=== PATIENT | male | born 1955 | race Caucasian/White ===

== ENCOUNTER 2023-05-27 09:44 | Emergency (ER) | payer MEDICARE, SELFPAY ==
--- NOTE | ~2023-05-27 | CT_ITS ---
EXAMINATION: CT ABDOMEN AND PELVIS WITH CONTRAST CLINICAL INFORMATION: Abdominal pain, nausea and vomiting. COMPARISON: None available. TECHNIQUE: Multidetector volumetric images were obtained from the superior aspect of the liver through the pubic symphysis following administration 85 mL of Omnipaque 350 intravenous contrast. Sagittal and coronal reformatted images were obtained on the technologist's workstation. Oral contrast: No This CT examination was performed using dose optimization techniques as appropriate, variously including the following: *Automated exposure control *Adjustment of mA and/or kV according to patient size (this includes techniques or standardized protocols for targeted exams where dose is matched to indication/reason for exam; i.e. extremities or head) *Use of iterative reconstruction technique DLP: 505 mGy-cm FINDINGS: [employer]: Nonobstructive bowel pattern. Degenerative changes, grade 1 anterolisthesis L4 on L5. LUNG BASES: 5 mm left lower lobe subpleural pulmonary nodule, 8:9. Left lower lobe atelectasis. LIVER, GALLBLADDER, AND BILIARY TREE: The liver is normal in size, shape, and attenuation. No focal hepatic lesion or biliary ductal dilatation is present. The gallbladder contains calcification near the neck. No wall thickening, pericholecystic fluid or inflammatory changes. PANCREAS: Unremarkable. SPLEEN: Unremarkable. ADRENAL GLANDS: Unremarkable. KIDNEYS AND URETERS: The kidneys are normal in size, shape, and attenuation. No hydronephrosis or hydroureter. 2 mm right lower pole nonobstructing calculus. Too small to characterize left renal hypodensities, likely cysts. No perinephric stranding. BLADDER: Urinary bladder distention with multiple diverticula. GASTROINTESTINAL TRACT: Well distended unremarkable stomach. Nonobstructive bowel pattern. Unremarkable terminal ileum and appendix. Diverticulosis with mild wall thickening descending colon. No pericolonic inflammatory changes. ABDOMINAL WALL: No significant hernia is appreciated. LYMPH NODES: Nonspecific inguinal lymph nodes bilaterally. Bilateral fat filled inguinal hernias. VASCULAR: Atherosclerotic calcifications nonaneurysmal aorta and tortuous iliac arteries. Normal caliber inferior vena cava. Patent portal system. PELVIC VISCERA: Prominent, heterogeneous prostate. OSSEOUS STRUCTURES: Multilevel degenerative changes and disc space narrowings. Grade 1 anterolisthesis L4 and L4 on L5. CT/CT abdomen pelvis w IV con IMPRESSION: Urinary bladder distention. Correlate regarding possible urinary retention. Prominent heterogeneous prostate. Nonobstructing right lower pole renal calculus. Cholelithiasis without other CT evidence of acute cholecystitis. 5 mm left lower lobe pulmonary nodule. Per Fleischner criteria, in low-risk patient, no routine follow-up. In unknown or high risk, optional CT at 12 months, is stable at 12 months no further follow-up.
[2023-05-27 09:56] VITALS: BP 102/64; PULSE 55; RESP 18; TEMP 36.7; O2SAT 95
[2023-05-27 10:13] VITALS: BP 123/59; PULSE 49; RESP 16; TEMP 37.2; O2SAT 100; BMI 24.1
--- NOTE | 2023-05-27 10:25 | ECG_ITS ---
Test Reason : STOMACHE PAIN Blood Pressure : / mmHG Vent. Rate : 052 BPM Atrial Rate : 052 BPM P-R Int : 162 ms QRS Dur : 076 ms QT Int : 452 ms P-R-T Axes : 049 029 047 degrees QTc Int : 420 ms Sinus bradycardia Otherwise normal ECG No previous ECGs available Referred By: Generic ED Physician Electronically Signed By:MARIXA MAN
[2023-05-27 10:48] LABS: MANUAL DIFF FLAG NO
[2023-05-27] MEDS: Metoclopramide HCl 10 MG/2 ML VIAL IVPUSH (10:48)
[2023-05-27 10:53] LABS: Basophils Absolute Auto 0.1 X10*3/uL (0.0-0.2); Basophils Percent Auto 0.8 % (0-2); Eosinophils Absolute Auto 0.1 X10*3/uL (0.0-0.4); Eosinophils Percent Auto 1.2 % (0-4); Hematocrit 39.3 % (42.0-52.0); Hemoglobin 13.4 g/dl (14.0-18.0); Imm Gran Abs Auto 0.03 X10*3/uL (0.00-0.03); Imm Gran Pct Auto 0.4 % (0.0-0.4); Lymphocytes Absolute Auto 0.8 X10*3/uL (1.2-4.9); Lymphocytes Percent Auto 10.8 % (20-40); Mean Corpuscular HGB Conc 34.1 g/dl (31.0-36.0); Mean Corpuscular Hemoglobin 31.4 pg (27.0-33.0); Mean Platelet Volume 9.2 fL (9.4-12.4); Monocytes Absolute Auto 0.3 X10*3/uL (0.1-1.2); Monocytes Percent Auto 4.4 % (2-11); Neutrophils Absolute Auto 6.4 x10*3/uL (2.0-8.3); Neutrophils Percent Auto 82.4 % (45-73); Platelet Count 136 X10*3/uL (160-400); Red Blood Count 4.27 X10*6/uL (4.60-5.80); Red Cell Distribution Width 12.6 % (11.0-16.0); White Blood Count 7.8 X10*3/uL (4.8-10.8)
[2023-05-27 11:05] LABS: Alanine Aminotransferase 17 U/L (0-40); Albumin Level 3.8 g/dL (3.5-5.0); Alkaline Phosphatase 66 U/L (39-117); Anion Gap 11 (12-20); Aspartate Amino Transferase 17 U/L (5-37); Bilirubin Direct 0.3 mg/dL (0.0-0.5); Bilirubin Total 0.8 mg/dL (0.0-1.0); Blood Urea Nitrogen 11 mg/dL (9-16); Calcium 8.8 mg/dL (8.4-10.2); Carbon Dioxide 24 mmol/L (22-29); Chloride 110 mmol/L (96-108); Creatinine Clr Calc Pharmacy 73.9; Estimated Glomerular Filt Rate > 60; Glucose Random 123 mg/dL (60-115); Lipase 20 U/L (8-78); Magnesium 1.8 mg/dL (1.6-2.6); Sodium 141 mmol/L (135-145); Total Protein 6.4 g/dL (6.5-8.0)
[2023-05-27 11:10] LABS: Lactic Acid 2.4 mmol/L (0.5-2.0)
[2023-05-27] MEDS: Morphine Sulfate 4 MG/ML CARTRIDGE IVPUSH (11:12)
[2023-05-27] MEDS: 0.9 % Sodium Chloride 1,000 ML 999 ML IV (11:20)
--- NOTE | 2023-05-27 11:38 | ED_ITS ---
HPI - Abdominal Pain General Chief Complaint: Abdominal Pain Stated Complaint: Left flank pain, shakiness, vomiting, nauseas Time Seen by Provider: 05/27/23 10:20 Source: patient, EMS, RN notes reviewed and old records reviewed Mode of arrival: EMS Limitations: no limitations History of Present Illness HPI narrative: 68 year old male w/ no significant pmhx presents to the ED via EMS from PCPs office w/complaints of left-sided abdominal pain that started this morning w/ assoc nausea and vomiting. 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 denies recent travel, sick contacts, trauma or injury, fever, chills, chest pain, shortness of breath, and urinary complaints. MD elicited complaint: abdominal pain Pertinent past history: none Onset (ago): hour(s) Pain Consistency: constant Related Data Allergies Allergy/AdvReac Type Severity Reaction Status Date / Time No Known Allergies Allergy Verified 05/27/23 10:12 Review of Systems Review of Systems Constitutional: No Fever, No Chills, No Fatigue, No Malaise ENT/Mouth: No Ear Pain, No Nasal Congestion, No sore throat, No Rhinorrhea, Cardiovascular: No Chest Pain, No SOB, No Edema, No Palpitations Respiratory: No Cough, No Sputum, No Wheezing, No Dyspnea Gastrointestinal: (+) Nausea, (+) Vomiting, (+) Abdominal pain, No Diarrhea, No Constipation, No Hematochezia, No Melena Genitourinary: No irregular bleeding, No Dysuria, No Urinary Frequency, No Hematuria, No Urinary Incontinence/retention, No Flank Pain Musculoskeletal: No joint pain, No Myalgias, No Joint Swelling Skin: No Skin Lesions, No rash Neuro: No Weakness, No Dizziness, No Headache Yes all other systems are reviewed and are negative Constitutional: Reports as per HPI [facility] Past Medical History Attestation statement: The following information was validated with the patient. Source: old records reviewed Medical History Hepatitis C Social History Social History Alcohol intake: former Smoked in Last 30 Days: No Use of substances other than those prescribed or required for medical reasons: No Advance Directives: No Advance Directives Information Provided: No Physical Exam ED Vital Signs: Vital Signs - 24 hr 05/27/23 09:56 05/27/23 10:13 05/27/23 11:54 Temperature 98.1 F 98.9 F Pulse Rate 55 49 L Respiratory Rate 18 16 18 Blood Pressure 102/64 123/59 L Pulse Oximetry 95 100 Oxygen Delivery Method Room Air Room Air 05/27/23 13:46 05/27/23 16:55 05/27/23 17:33 Temperature 98.6 F Pulse Rate 50 54 Respiratory Rate 16 18 Blood Pressure 111/57 L 126/64 Pulse Oximetry 95 96 Oxygen Delivery Method Room Air Room Air BMI result Body Mass Index 24.1 Const Other: In pain General: cooperative, no acute distress and alert Orientation/consciousness: patient oriented x3 Limitations: no limitations HENMT Head: Yes normal to inspection and Yes atraumatic Ears: hearing grossly normal bilaterally General nose exam: Normal external nose present Face and sinus: Yes normal facial exam Eyes General: appearance normal, both eyes and all related structures Pupils: Equal, round and reactive pupils present EOM: EOMs intact bilaterally Neck Neck: Yes normal visual inspection and Yes no meningeal signs Resp Effort & Inspection: normal respiratory effort and no respiratory distress Auscultation: clear to auscultation bilaterally Cardio Rate: regular rate Heart sounds: S1 normal heart sound present and S2 normal heart sound present GI Inspection: Yes normal to inspection Palpation (GI): Soft to palpation, Tenderness to palpation present (GI) in the LLQ, in the LUQ and in the RUQ; with no rebound tenderness, Guarding due to palpation present (GI), not rigid and No Rebound tenderness present General: Yes no CVA tenderness Back/Spine/Pelvis Back: no CVA tenderness Skin Rashes: no rashes Wounds: no wounds Neuro General: patient oriented x3, tone normal and no meningeal signs Cranial nerves: Yes CN's II-XII intact bilaterally and Yes Equal, round and reactive pupils present Extrem General: Yes normal to inspection Course Course Course Narrative: -1225-- no leukocytosis. Lactic acidosis of 2.4 > will give IVF and empiric Zosyn, still low suspicion for severe sepsis at this time - troponin negative - repeat lactic acid normalized 1456--CT abdomen pelvis w IV con IMPRESSION: Urinary bladder distention. Correlate regarding possible urinary retention. Prominent heterogeneous prostate. Nonobstructing right lower pole renal calculus. Cholelithiasis without other CT evidence of acute cholecystitis. 5 mm left lower lobe pulmonary nodule. Per Fleischner criteria, in low-risk patient, no routine follow-up. In unknown or high risk, optional CT at 12 months, is stable at 12 months no further follow-up. >> patient has not yet provided urine in the ED, states he does not have the urge to go, will perform bladder scan with postvoid residual - pre void bladder scan 696 > post-void residual with 350 - patient given water, additional bladder scan 619 > patient only with 100 cc output > postvoid residual 468 >> patient retaining, will place Moctezuma catheter -1630-- ED care transferred to [facility] pending catheter placement, UA, and dispo home with leg bag Reevaluation(s) Reevaluation #1: Urinalysis is without evidence of infection. Moctezuma catheter was placed without complication, instructed on use of leg bag and outpatient follow-up with Urology. All questions answered. Stable for discharge. Time: 17:34 Medical Decision Making Medical Decision Making [facility] Narrative: 68 year old male w/ no significant pmhx presents to the ED via EMS from PCPs office w/complaints of left-sided abdominal pain that started this morning w/ assoc nausea and vomiting. 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 On exam VSS, NAD, appears in pain, abdomen soft diffusely tender with guarding, no rebound, no CVAT. concern for diverticulitis/colitis vs ? splenic pathology vs hepatobilliary disease/cholecystitis/lithiasis or acute pancreatitis/PUD. Lower suspicion for appendicitis, bowel obstruction/perforation. lower suspicion for ACS low suspicion for severe sepsis at this time Plan: EKG,labs, UA, CT abd/pelv w/ IV contrast, pain control, re-evaluate Please refer to course for remaining clinical decision making, interpretation of labs/imaging results, and discussions with consultants and/or family members. Differential Diagnosis Differential Diagnoses: The differential diagnosis associated with the presentation includes As above Admission/Observation Consideration of admission/observation: Escalation of care including admission/observation considered Lab Data [facility] Lab Attestation statement: I reviewed the patient's lab results. 05/27/23 10:40 05/27/23 10:40 Labs: Lab Results 05/27/23 05/27/23 05/27/23 Range/Units 10:40 10:40 10:40 WBC 7.8 (4.8-10.8) X10*3/uL RBC 4.27 L (4.60-5.80) X10*6/uL Hgb 13.4 L (14.0-18.0) g/dl Hct 39.3 L (42.0-52.0) % MCV 92.0 (80.0-98.0) fL MCH 31.4 (27.0-33.0) pg MCHC 34.1 (31.0-36.0) g/dl RDW 12.6 (11.0-16.0) % Plt Count 136 L (160-400) X10*3/uL MPV 9.2 L (9.4-12.4) fL Immature Gran % (Auto) 0.4 (0.0-0.4) % Neut % (Auto) 82.4 H (45-73) % Lymph % (Auto) 10.8 L (20-40) % Major % (Auto) 4.4 (2-11) % Eos % (Auto) 1.2 (0-4) % Baso % (Auto) 0.8 (0-2) % Lymph # (Auto) 0.8 L (1.2-4.9) X10*3/uL Major # (Auto) 0.3 (0.1-1.2) X10*3/uL Eos # (Auto) 0.1 (0.0-0.4) X10*3/uL Baso # (Auto) 0.1 (0.0-0.2) X10*3/uL Abs Immat Gran (auto) 0.03 (0.00-0.03) X10*3/uL Absolute Neuts (auto) 6.4 (2.0-8.3) x10*3/uL Absolute Nucleated RBC 0.000 (0.0-0.012) X10*3/uL Nucleated RBC % (auto) 0.0 (0.0-0.2) /100WBC Sodium 141 (135-145) mmol/L Potassium 4.0 (3.3-5.1) mmol/L Chloride 110 H (96-108) mmol/L Carbon Dioxide 24 (22-29) mmol/L Anion Gap 11 L (12-20) BUN 11 (9-16) mg/dL Creatinine 0.99 (0.5-1.4) mg/dL Estim Creat Clear Calc 73.9 Estimated GFR > 60 Random Glucose 123 H (60-115) mg/dL Lactic Acid 2.4 H* (0.5-2.0) mmol/L Lactic Acid F/U @ 2Hr (0.5-2.0) mmol/L Calcium 8.8 (8.4-10.2) mg/dL Magnesium 1.8 (1.6-2.6) mg/dL Total Bilirubin 0.8 (0.0-1.0) mg/dL Direct Bilirubin 0.3 (0.0-0.5) mg/dL AST 17 (5-37) U/L ALT 17 (0-40) U/L Alkaline Phosphatase 66 (39-117) U/L Troponin I High Sens (<3.5-35.0) ng/L Total Protein 6.4 L (6.5-8.0) g/dL Albumin 3.8 (3.5-5.0) g/dL Lipase 20 (8-78) U/L Urine Color Urine Appearance Urine pH (5.0-9.0) Ur Specific [place] (1.005-1.025) Urine Protein (Neg-Trace) mg/dL Urine Glucose (UA) (Negative) mg/dL Urine Ketones (Negative) mg/dL Urine Blood (Negative) Urine Nitrite (Negative) Ur Leukocyte Esterase (Negative) 05/27/23 05/27/23 05/27/23 Range/Units 11:19 12:58 16:30 WBC (4.8-10.8) X10*3/uL RBC (4.60-5.80) X10*6/uL Hgb (14.0-18.0) g/dl Hct (42.0-52.0) % MCV (80.0-98.0) fL MCH (27.0-33.0) pg MCHC (31.0-36.0) g/dl RDW (11.0-16.0) % Plt Count (160-400) X10*3/uL MPV (9.4-12.4) fL Immature Gran % (Auto) (0.0-0.4) % Neut % (Auto) (45-73) % Lymph % (Auto) (20-40) % Major % (Auto) (2-11) % Eos % (Auto) (0-4) % Baso % (Auto) (0-2) % Lymph # (Auto) (1.2-4.9) X10*3/uL Major # (Auto) (0.1-1.2) X10*3/uL Eos # (Auto) (0.0-0.4) X10*3/uL Baso # (Auto) (0.0-0.2) X10*3/uL Abs Immat Gran (auto) (0.00-0.03) X10*3/uL Absolute Neuts (auto) (2.0-8.3) x10*3/uL Absolute Nucleated RBC (0.0-0.012) X10*3/uL Nucleated RBC % (auto) (0.0-0.2) /100WBC Sodium (135-145) mmol/L Potassium (3.3-5.1) mmol/L Chloride (96-108) mmol/L Carbon Dioxide (22-29) mmol/L Anion Gap (12-20) BUN (9-16) mg/dL Creatinine (0.5-1.4) mg/dL Estim Creat Clear Calc Estimated GFR Random Glucose (60-115) mg/dL Lactic Acid (0.5-2.0) mmol/L Lactic Acid F/U @ 2Hr 1.1 (0.5-2.0) mmol/L Calcium (8.4-10.2) mg/dL Magnesium (1.6-2.6) mg/dL Total Bilirubin (0.0-1.0) mg/dL Direct Bilirubin (0.0-0.5) mg/dL AST (5-37) U/L ALT (0-40) U/L Alkaline Phosphatase (39-117) U/L Troponin I High Sens 4.3 (<3.5-35.0) ng/L Total Protein (6.5-8.0) g/dL Albumin (3.5-5.0) g/dL Lipase (8-78) U/L Urine Color Yellow Urine Appearance Clear Urine pH 7.0 (5.0-9.0) Ur Specific [place] >= 1.030 H (1.005-1.025) Urine Protein Negative (Neg-Trace) mg/dL Urine Glucose (UA) Negative (Negative) mg/dL Urine Ketones Trace (Negative) mg/dL Urine Blood Negative (Negative) Urine Nitrite Negative (Negative) Ur Leukocyte Esterase Negative (Negative) Independent Interpretation I performed an independent interpretation of an: EKG ( my interpretation EKG sinus bradycardia rate of 52. ID interval 162. QTC 420. No STEMI. No priors to compare) Radiology Impression Discussion of test interpretation with radiology: I have reviewed the radiologist's reading. Independent Historian Clinical information obtained from an independent historian. History obtained from or confirmed by: EMS External Record Review External record reviewed: Inpatient record, Office record, Outpatient record, Prior outpatient labs, Prior outpatient radiology, Primary care record and Outside ED record Tests considered The following testing was considered but not selected: As above Prescription Management I considered prescription management with: Pain Medication and Antibiotic Medications Administered Discontinued Medications Generic Name Dose Route Start Last Admin Trade Name Freq PRN Reason Stop Dose Admin Sodium Chloride 1,000 mls @ 999 mls/hr 05/27/23 11:15 05/27/23 13:07 Ns IV 05/27/23 12:15 Infused .Q1H1M ZECHARIAH Infusion Piperacillin Sod/Tazobactam 50 mls @ 100 mls/hr 05/27/23 11:10 05/27/23 13:07 Sod 3.375 gm/ Sodium Chloride IV 05/27/23 11:39 Infused ONCE ONE Infusion Sodium Chloride 500 mls @ 999 mls/hr 05/27/23 12:30 05/27/23 14:29 Ns IV 05/27/23 13:00 Infused .Q31M ZECHARIAH Infusion Iohexol 85 ml 05/27/23 13:28 05/27/23 13:28 Iohexol 350 Mg/Ml 100 Ml Infus..Btl IV 05/27/23 13:29 85 ml ONCE ONE Administration Ketorolac Tromethamine 15 mg 05/27/23 16:33 05/27/23 16:52 Ketorolac Tromethamine 15 Mg/Ml Vial IVPUSH 05/27/23 16:34 15 mg ONCE ONE Administration Metoclopramide HCl 10 mg 05/27/23 10:34 05/27/23 10:48 Metoclopramide Hcl 10 Mg/2 Ml Vial IVPUSH 05/27/23 10:35 10 mg ONCE ONE Administration Morphine Sulfate 4 mg 05/27/23 10:46 05/27/23 11:12 Morphine Sulfate 4 Mg/Ml Cartridge IVPUSH 05/27/23 10:47 4 mg ONCE ONE Administration Protocol Tamsulosin HCl 0.4 mg 05/27/23 16:34 05/27/23 16:52 Tamsulosin Hcl 0.4 Mg Capsule PO 05/27/23 16:35 0.4 mg ONCE ONE Administration Discharge Plan Discharge Clinical Impression: Acute urinary retention, Incidental pulmonary nodule Patient Disposition: Home, Self-Care Instructions: Urinary Retention in Men (ED) Additional Instructions: your CT scan showed urine urinary retention, we needed to place a Moctezuma catheter you need to follow-up with Urology in 1 week for catheter removal Your CT scan also showed a left lobe pulmonary nodule it is recommended you have a repeat CT scan in 1 year, please follow-up with her primary care doctor Your blood work is reassuring Referrals: [facility] [place] [facility] Services [Provider Group] - 1 week Physician,Patience J [Primary Care Provider] -
[2023-05-27] MEDS: Piperacillin Sodium/Tazobactam 3.375 GM in 0.9 % Sodium Chloride 50 ML IV (11:46)
[2023-05-27 11:54] VITALS: RESP 18
[2023-05-27 11:54] LABS: Troponin-I High Sensitivity 4.3 ng/L (<3.5-35.0)
[2023-05-27 12:46] LABS: Reflex Lactate? Lactic Acid Added
[2023-05-27 13:23] LABS: ~Lactic Acid-LAB USE ONLY 1.1 mmol/L (0.5-2.0)
[2023-05-27] MEDS: iohexoL 350 MG/ML 100 ML INFUS..BTL 85 ML IV (13:28)
[2023-05-27] MEDS: 0.9 % Sodium Chloride 500 ML 999 ML IV (13:43)
[2023-05-27 13:46] VITALS: BP 111/57; PULSE 50; RESP 16; O2SAT 95
[2023-05-27 16:47] LABS: Appearance Urine Clear; Color Urine Yellow; Glucose Urine UA Negative (Negative); Leukocyte Esterase Urine Negative (Negative); Nitrite Urine Negative (Negative); Specific Gravity - Urine >= 1.030 (1.005-1.025); Urine Blood Negative (Negative); Urine Ketones Trace mg/dL (Negative); Urine Protein Negative (Neg-Trace)
[2023-05-27] MEDS: Tamsulosin HCL 0.4 MG CAPSULE PO (16:52)
[2023-05-27] MEDS: Ketorolac Tromethamine 15 MG/ML VIAL IVPUSH (16:52)
[2023-05-27 16:55] VITALS: BP 126/64; PULSE 54; TEMP 37; O2SAT 96
[2023-05-27 17:33] VITALS: RESP 18
--- NOTE | 2023-05-27 17:34 | PC.NURSE ---
haas placed. clear yellow urine drained.
--- NOTE | 2023-05-27 17:54 | PC.NURSE ---
800 cc urine out s/p urine catheter. leg bag applied- patent, cdi. piv out
== END 2023-05-27 17:58 | disposition home or self-care (01) ==
PROVIDERS: Physician Assistant; Emergency Provider Emergency Medicine
DX: R33.9 Retention of urine, unspecified (principal); B19.20 Unspecified viral hepatitis C without hepatic coma
CPT/HCPCS: 36415; 51798; 74177; 80053; 81003; 82248; 83605; 83690; 83735; 84484; 85025; 93005; 96361; 96374; 96375; 99284; 99285; J1885; J2270; J2543; J2765; Q9967

== ENCOUNTER 2023-06-05 10:11 | Outpatient (AMB) | payer MEDICARE, SELFPAY ==
--- NOTE | 2023-06-05 05:57 | A.OFFVIS_ITS ---
Intake Intake Visit Reasons: voiding trial Intake Note: Patient presents today for a ER follow-up on Acute Urinary Retention, Voiding trial: Meds- None Allergies to Antibiotic- No Known Allergies Blood Thinner- None Board Design Engineer Required: No Accompanied by: Self / Same As Patient Allergies No Known Allergies Allergy (Verified 05/27/23 10:12) HPI HPI Comments History of Present Illness Details Samy is a 68-year-old male who presents today to the office for a follow up voiding trial. 06/05/2023? Samy is followed today due to urinary retention, haas was placed in the ED. He was seen in ED on 05/27/2023 with complaints of left-sided abdominal pain that started with associated nausea and vomiting. Imaging - CT of the abdomen/pelvis results from 05/27/2023 revealed Urinary bladder distention. Correlate regarding possible urinary retention. Prominent heterogeneous prostate. Nonobstructing right lower pole renal calculus. Exam - prostate moderately enlarged, irregular Haas was removed today in the office. Pt returned later in day and Bladder scan PVR was 22 mL PSA screening was ordered.? Flomax 0.4 mg daily was ordered. [facility] Medical History Hepatitis C Family History Father No problems noted. Mother No problems noted. Social History Alcohol intake: former Review of Systems Const All systems reviewed & are unremarkable except as noted in HPI and below Reports no additional complaints Eyes Reports no additional complaints ENT Reports no additional complaints Card Denies dyspnea Resp Denies cough and Denies dyspnea GI Reports no additional complaints Musc Reports no additional complaints Skin/Breast Denies rash and Denies unusual bruising Neuro Reports no additional complaints Psych Reports no additional complaints Endo Reports no additional complaints Jc/Lymph Reports no additional complaints Aller/Immun Reports no additional complaints Physical Exam Const General: healthy appearing, no acute distress and well developed Orientation/consciousness: patient oriented x3 HEENT Head: Yes normocephalic and Yes atraumatic Eyes Conjunctivae: conjunctivae normal Neck Neck: Yes normal visual inspection Chest Chest palpation & inspection: normal inspection of the chest Resp Effort & Inspection: normal respiratory effort Cardio Rate: regular rate GI Inspection: Yes normal to inspection Palpation (GI): Soft to palpation Other: Prostate Exam: enlarged irregular Penis: normal penis and circumcised Scrotum: scrotum normal Skin General skin exam: no rashes or lesions noted Neuro General: patient oriented x3 Extrem General: No pedal edema Psych Appearance: grossly normal Affect: normal affect Office Procedures Post Void Residual Post Residual Void Details: pt presents back to office for PVR- pt emptied bladder in br, bladder scanned for 22 mls. Post Void Residual (PVR): [id number] Void Residual by ultrasound Results Reviewed Results Reviewed: Date of Service: 05/27/23 EXAMINATION: CT ABDOMEN AND PELVIS WITH CONTRAST? CLINICAL INFORMATION: Abdominal pain, nausea and vomiting.? COMPARISON: None available. FINDINGS: [employer]: Nonobstructive bowel pattern. Degenerative changes, grade 1 anterolisthesis L4 on L5. LUNG BASES: 5 mm left lower lobe subpleural pulmonary nodule, 8:9. Left lower lobe atelectasis. LIVER, GALLBLADDER, AND BILIARY TREE: The liver is normal in size, shape, and attenuation. No focal hepatic lesion or biliary ductal dilatation is present. The gallbladder contains calcification near the neck. No wall thickening, pericholecystic fluid or inflammatory changes.? PANCREAS: Unremarkable.? SPLEEN: Unremarkable.? ADRENAL GLANDS: Unremarkable.? KIDNEYS AND URETERS: The kidneys are normal in size, shape, and attenuation. No hydronephrosis or hydroureter. 2 mm right lower pole nonobstructing calculus. Too small to characterize left renal hypodensities, likely cysts. No perinephric stranding.?? BLADDER: Urinary bladder distention with multiple diverticula. GASTROINTESTINAL TRACT: Well distended unremarkable stomach. Nonobstructive bowel pattern. Unremarkable terminal ileum and appendix. Diverticulosis with mild wall thickening descending colon. No pericolonic inflammatory changes. ABDOMINAL WALL: No significant hernia is appreciated.? LYMPH NODES: Nonspecific inguinal lymph nodes bilaterally. Bilateral fat filled inguinal hernias. VASCULAR: Atherosclerotic calcifications nonaneurysmal aorta and tortuous iliac arteries. Normal caliber inferior vena cava. Patent portal system. PELVIC VISCERA: Prominent, heterogeneous prostate. OSSEOUS STRUCTURES: Multilevel degenerative changes and disc space narrowings. Grade 1 anterolisthesis L4 and L4 on L5. IMPRESSION: Urinary bladder distention. Correlate regarding possible urinary retention. Prominent heterogeneous prostate. Nonobstructing right lower pole renal calculus. Cholelithiasis without other CT evidence of acute cholecystitis. 5 mm left lower lobe pulmonary nodule. Per Fleischner criteria, in low-risk patient, no routine follow-up. In unknown or high risk, optional CT at 12 months, is stable at 12 months no further follow-up. Assessment & Plan Assessment & Plan (1) Urinary retention: Code(s): R33.9 - Retention of urine, unspecified (2) BPH loc w urin obs/LUTS: Code(s): N40.1 - Benign prostatic hyperplasia with lower urinary tract symptoms (3) Right kidney stone: Code(s): N20.0 - Calculus of kidney Plan Haas was removed today in the office. PSA screening was ordered.? Flomax 0.4 mg daily was ordered. Orders: Orders PSA,Total (Free>4and<10) 1 Month N40.1 - Benign prostatic hyperplasia with lower urinary tract symptoms AMB Post Void Residual by ultrasound 06/05/23 N20.0 - Calculus of kidney, R33.9 - Retention of urine, unspecified, N40.1 - Benign prostatic hyperplasia with lower urinary tract symptoms Medications: New tamsulosin (Flomax) 0.4 mg PO BEDTIME 90 caps 0RF Patient Instructions: The patient had an opportunity to ask questions regarding treatment plan. All questions were answered. Imaging, Laboratory studies and physical exam results were discussed and reviewed in detail. No major barriers to understanding were identified. The patient expressed understanding and agreement with the above treatment plan.? ? ? The patient is aware they should contact our office by phone for worsening of their current condition or the appearance of new symptoms. Compliance is encouraged with any medications and followup testing that is ordered.? ? ? It is a privilege to be allowed the opportunity to participate in the urologic care of your patient. If you have any questions or concerns regarding treatment for the above conditions please do not hesitate to contact me. The office telephone contact is [phone].? ? ? This note is constructed in part using voice recognition software. While every effort has been made to ensure accuracy state assessed properties director errors may have been included.? ? ? Yours sincerely,? ? ? Alfredo Hernandes MD? ? Coding Level of Care Code New Pt Level 4 (30575) Diagnoses Urinary retention R33.9 BPH loc w urin obs/LUTS N40.1 Right kidney stone N20.0 CPT Codes Post Residual Void - PVR CPT Code: 11819-Lvfj Void Residual by ultrasound ([id number])
== END 2023-06-05 11:20 | disposition home or self-care (01) ==
PROVIDERS: Visit Provider Urology
DX: R33.9 Retention of urine, unspecified (principal); N40.1 Benign prostatic hyperplasia with lower urinary tract symptoms; N20.0 Calculus of kidney
CPT/HCPCS: 99204

== ENCOUNTER → 2023-06-05 10:11 | Outpatient (BNVA) | payer MEDICARE, SELFPAY | PROVIDERS: Visit Provider Urology | DX: N40.1 Benign prostatic hyperplasia with lower urinary tract symptoms (principal); N13.8 Other obstructive and reflux uropathy; R33.8 Other retention of urine; N20.0 Calculus of kidney | CPT/HCPCS: 51798; 99202 ==

== ENCOUNTER → 2023-07-28 14:21 | Outpatient (BNVA) | payer MEDICARE, SELFPAY | PROVIDERS: Visit Provider Urology ==

== ENCOUNTER 2023-08-04 08:13 | Outpatient (AMB) | payer MEDICARE, SELFPAY ==
--- NOTE | 2023-08-04 08:14 | A.OFFVIS_ITS ---
Intake Intake Visit Reasons: 6w/labs Intake Note: Patient presents today for Labs Results: Meds- Tamsulosin Allergies to Antibiotic- No Known Allergies Blood Thinner- None Electric Power Superintendent Required: No Accompanied by: Self / Same As Patient Allergies No Known Allergies Allergy (Verified 05/27/23 10:12) Medication List - Last Reconciled 08/04/23 by Alfredo Hernandes MD amlodipine 5 mg PO DAILY atorvastatin 10 mg PO DAILY ferrous sulfate 325 mg PO DAILY folic acid 1 mg PO DAILY lisinopril 30 mg PO DAILY tamsulosin (Flomax) 0.4 mg PO BEDTIME HPI HPI Comments History of Present Illness Details Samy is a 68-year-old male who presents today via Tele-health visit for a follow-up. He is followed today for lab results. He was last seen by me on 06/05/2023 for voiding trial. PSA screening was ordered, and Flomax 0.4 mg daily was ordered during that time.? Moctezuma catheter was removed during that time. I reviewed the PSA results from 07/23/23 revealed 2.1 ng/mL. In discussion with the patient today, he states that he has been compliant with Flomax every evening. He states that he has good urinary flow. He has not had any issues with hesitancy and denies any irritative voiding symptoms. Review of chart: 06/05/23- Imaging - CT of the abdomen/pel vis results from 05/27/2023 revealed Urinary bladder distention. Correlate regarding possible urinary retention. Prominent heterogeneous prostate. Nonobstructing right lower pole renal ca lculus. Exam - prostate moderately enlarged, irregular 08/04/23: Plan Follow-up in 9 months in office to check bladder scan PVR KUB Xray- small right kidney stone. [facility] Medical History Hepatitis C Family History Father No problems noted. Mother No problems noted. Social History Alcohol intake: former Review of Systems Const All systems reviewed & are unremarkable except as noted in HPI and below Reports no additional complaints Eyes Reports no additional complaints ENT Reports no additional complaints Card Denies dyspnea Resp Denies cough and Denies dyspnea GI Reports no additional complaints Musc Reports no additional complaints Skin/Breast Denies rash and Denies unusual bruising Neuro Reports no additional complaints Psych Reports no additional complaints Endo Reports no additional complaints Cj/Lymph Reports no additional complaints Aller/Immun Reports no additional complaints Assessment & Plan Assessment & Plan (1) BPH loc w urin obs/LUTS: Code(s): N40.1 - Benign prostatic hyperplasia with lower urinary tract symptoms (2) Right kidney stone: Code(s): N20.0 - Calculus of kidney Plan Follow-up in 9 months in office to check bladder scan PVR KUB Xray- small right kidney stone. Orders: Orders XR KUB 8 Months N20.0 - Calculus of kidney Medications: Refilled tamsulosin (Flomax) 0.4 mg PO BEDTIME 90 caps 3RF Patient Instructions: The patient had an opportunity to ask questions regarding treatment plan. All questions were answered. Imaging, Laboratory studies and physical exam results were discussed and reviewed in detail. No major barriers to understanding were identified. The patient expressed understanding and agreement with the above treatment plan.? ? ? The patient is aware they should contact our office by phone for worsening of their current condition or the appearance of new symptoms. Compliance is encouraged with any medications and followup testing that is ordered.? ? ? It is a privilege to be allowed the opportunity to participate in the urologic care of your patient. If you have any questions or concerns regarding treatment for the above conditions please do not hesitate to contact me. The office telephone contact is [phone].? ? ? This note is constructed in part using voice recognition software. While every effort has been made to ensure accuracy vocational nurse lvn errors may have been included.? ? ? Yours sincerely,? ? ? Alfredo Hernandes MD? Telehealth Telehealth Location of provider rendering services: practice address Location of patient: address on file Patient Identification confirmed using: Name, : Yes Telehealth method: voice only Patient verbally consented to treatment: Yes Patient verbally consented to billing insurance company: Yes Patient informed of any privacy concerns related to visit: Yes Minutes spent on Phone/Video with Pt.: 15 Coding Level of Care Code Tele Est Pt Level 3 (76761) Diagnoses BPH loc w urin obs/LUTS N40.1 Right kidney stone N20.0
== END 2023-08-04 08:32 | disposition home or self-care (01) ==
LOC: HO.HUSH 08:13
PROVIDERS: Visit Provider Urology
DX: N40.1 Benign prostatic hyperplasia with lower urinary tract symptoms (principal); N20.0 Calculus of kidney
CPT/HCPCS: 99442

== ENCOUNTER → 2023-08-04 08:13 | Outpatient (BNVA) | payer MEDICARE, SELFPAY | PROVIDERS: Visit Provider Urology ==

== ENCOUNTER 2024-07-08 08:29 | Outpatient (REF) | payer MEDICARE, SELFPAY ==
--- NOTE | ~2024-07-08 | XR_ITS ---
EXAMINATION: XR ABDOMEN KUB CLINICAL INDICATION: N20.0 - Calculus of kidney COMPARISON: Correlation made with CT abdomen and pelvis 05/27/2023. TECHNIQUE: AP view of the abdomen. FINDINGS: 3 mm calcification is present overlying the inferior pole of the right renal shadow. No additional calculi seen. There are vascular calcifications. Bowel gas pattern is normal/nonspecific. No organomegaly or large abdominal mass. Lung bases clear. Advanced spondylosis and levoconvex scoliosis of the lumbar spine. Partial fusion of the superior SI joints. Normal hip joints. XR/XR KUB IMPRESSION: 1. 3 mm calcification overlying the inferior right renal pole. 2. Additional findings as discussed. 3. Otherwise unremarkable exam. Electronically signed by: Angel Lawrence MD 09/14/2024 11:39 AM KASSANDRA
== END 2024-07-08 08:30 | disposition home or self-care (01) ==
LOC: HO.XRAY 08:29
PROVIDERS: PCP Internal Medicine; Visit Provider Urology
DX: N20.0 Calculus of kidney (principal)
CPT/HCPCS: 74018

== ENCOUNTER → 2024-07-08 08:35 | Outpatient (BNV) | payer MEDICARE, SELFPAY | PROVIDERS: PCP Internal Medicine; Visit Provider Radiology Diagnostic Radiology | DX: N20.0 Calculus of kidney (principal) | CPT/HCPCS: 74018 ==

== ENCOUNTER 2024-07-22 08:11 | Outpatient (AMB) | payer MEDICARE, SELFPAY ==
--- NOTE | 2024-07-22 08:29 | MHC.OFFVIS ---
Intake Visit Reasons: KUB f/u Intake Note: Patient is present for KUB F/U Urology Medication:TAMSULOSIN Antibiotic Allergy:NONE Blood Thinner:NONE TODAY'S PVR: 0ML'S Industrial Property Appraiser Required: No Allergies No Known Allergies Allergy (Verified 07/22/24 08:30) HPI Comments Details: 07/22/24--Samy is a 69-year-old male who presents today for a follow-up. Followed for BPH symptoms and renal calculi. On flomax. Denies irritative voiding symptoms. Reviewed PSA 07/22/24-2.40ng/mL. UA - microscopic hematuria. Will send urine for cytology. Review of chart: 08/04/23--He is followed today for lab results. He was last seen by me on 06/05/2023 for voiding trial. PSA screening was ordered, and Flomax 0.4 mg daily was ordered during that time.? Moctezuma catheter was removed during that time. I reviewed the PSA results from 07/23/23 revealed 2.1 ng/mL. In discussion with the patient today, he states that he has been compliant with Flomax every evening. He states that he has good urinary flow. He has not had any issues with hesitancy and denies any irritative voiding symptoms. Exam - prostate moderately enlarged, irregular Testin06/05/23- Imaging - CT of the abdomen/pelvis results from 05/27/2023 revealed Urinary bladder distention. Correlate regarding possible urinary retention. Prominent heterogeneous prostate. Nonobstructing right lower pole renal calculus. [facility] Medical History Hepatitis C Family History Father No problems noted. Mother No problems noted. Social History Alcohol intake: former Review of Systems Const All systems reviewed & are unremarkable except as noted in HPI and below Reports no additional complaints Eyes Reports no additional complaints ENT Reports no additional complaints Card Reports no additional complaints Resp Reports no additional complaints GI Reports no additional complaints Reports as per HPI Musc Reports no additional complaints Skin/Breast Reports system reviewed and no additional complaints, except as documented Neuro Reports no additional complaints Psych Reports no additional complaints Endo Reports no additional complaints Cj/Lymph Reports no additional complaints Aller/Immun Reports no additional complaints Office Procedures Post Void Residual Post Residual Void Post Void Residual (PVR): 0 [id number] Void Residual by ultrasound Results AMB Urinalysis, Automated UA Leukoctes 0 Cem/uL Last Edit by BERHANE Miranda on 07/22/24 08:40 UA Nitrite Negative Last Edit by BERHANE Miranda on 07/22/24 08:40 UA Urobilinogen 0.2 mg/dL Last Edit by Soo Ruelas [facility] on 07/22/24 08:40 UA Protein 0 mg/dL Last Edit by Soo Ruelas [facility] on 07/22/24 08:40 UA pH 6.0 Last Edit by Soo Ruelas [facility] on 07/22/24 08:40 UA Blood 10 Mg/uL Last Edit by Soo Ruelas [facility] on 07/22/24 08:40 UA Specific [place] 1.015 Last Edit by BERHANE Miranda on 07/22/24 08:40 UA Ketone Negative Last Edit by Soo Ruelas [facility] on 07/22/24 08:40 UA Bilirubin 0 mg/dL Last Edit by Soo Ruelas [facility] on 07/22/24 08:40 UA Glucose 0 mg/dL Last Edit by Soo Ruelas [facility] on 07/22/24 08:40 Results Reviewed Results Reviewed: Laboratory Last Values Urine pH (Auto) 6.0 07/22/24 08:39 Specific [place] (Auto) 1.015 07/22/24 08:39 Urine Protein (Auto) 0 mg/dL 07/22/24 08:39 Glucose (UA)(Auto) 0 mg/dL 07/22/24 08:39 Urine Ketones (Auto) Negative 07/22/24 08:39 Urine Blood (Auto) 10 Mg/uL 07/22/24 08:39 Urine Nitrite (Auto) Negative 07/22/24 08:39 Urine Bilirubin (Auto) 0 mg/dL 07/22/24 08:39 Urine Urobilinogen (Auto) 0.2 mg/dL 07/22/24 08:39 Leukocyte Esterase (Auto) 0 Cem/uL 07/22/24 08:39 Date of Service: 05/27/23 EXAMINATION: CT ABDOMEN AND PELVIS WITH CONTRAST? CLINICAL INFORMATION: Abdominal pain, nausea and vomiting.? COMPARISON: None available. FINDINGS: LOADER OPERATOR/GROUND LEADER: Nonobstructive bowel pattern. Degenerative changes, grade 1 anterolisthesis L4 on L5. LUNG BASES: 5 mm left lower lobe subpleural pulmonary nodule, 8:9. Left lower lobe atelectasis. LIVER, GALLBLADDER, AND BILIARY TREE: The liver is normal in size, shape, and attenuation. No focal hepatic lesion or biliary ductal dilatation is present. The gallbladder contains calcification near the neck. No wall thickening, pericholecystic fluid or inflammatory changes.? PANCREAS: Unremarkable.? SPLEEN: Unremarkable.? ADRENAL GLANDS: Unremarkable.? KIDNEYS AND URETERS: The kidneys are normal in size, shape, and attenuation. No hydronephrosis or hydroureter. 2 mm right lower pole nonobstructing calculus. Too small to characterize left renal hypodensities, likely cysts. No perinephric stranding.?? BLADDER: Urinary bladder distention with multiple diverticula. GASTROINTESTINAL TRACT: Well distended unremarkable stomach. Nonobstructive bowel pattern. Unremarkable terminal ileum and appendix. Diverticulosis with mild wall thickening descending colon. No pericolonic inflammatory changes. ABDOMINAL WALL: No significant hernia is appreciated.? LYMPH NODES: Nonspecific inguinal lymph nodes bilaterally. Bilateral fat filled inguinal hernias. VASCULAR: Atherosclerotic calcifications nonaneurysmal aorta and tortuous iliac arteries. Normal caliber inferior vena cava. Patent portal system. PELVIC VISCERA: Prominent, heterogeneous prostate. OSSEOUS STRUCTURES: Multilevel degenerative changes and disc space narrowings. Grade 1 anterolisthesis L4 and L4 on L5. IMPRESSION: Urinary bladder distention. Correlate regarding possible urinary retention. Prominent heterogeneous prostate. Nonobstructing right lower pole renal calculus. Cholelithiasis without other CT evidence of acute cholecystitis. 5 mm left lower lobe pulmonary nodule. Per Fleischner criteria, in low-risk patient, no routine follow-up. In unknown or high risk, optional CT at 12 months, is stable at 12 months no further follow-up. Assessment & Plan Assessment & Plan (1) BPH loc w urin obs/LUTS: Code(s): N40.1 - Benign prostatic hyperplasia with lower urinary tract symptoms Category: Medical (2) Right kidney stone: Code(s): N20.0 - Calculus of kidney Category: Medical (3) Microscopic hematuria: Code(s): R31.29 - Other microscopic hematuria Category: Medical Plan Renal/Bladder US, fu in one year Orders: Orders AMB Urinalysis Automated 07/22/24 Z13.9 - Encounter for screening, unspecified PSA,Total (Free>4and<10) 07/22/24 N40.1 - Benign prostatic hyperplasia with lower urinary tract symptoms Urine Cytology 07/22/24 R33.9 - Retention of urine, unspecified Patient Instructions: The patient had an opportunity to ask questions regarding treatment plan. The patient expressed understanding and agreement with the above treatment plan. The patient is aware they should contact our office by phone for worsening of their current condition or the appearance of new symptoms. Compliance is encouraged with any medications and followup testing that is ordered. It is a privilege to be allowed the opportunity to participate in the urologic care of your patient. If you have any questions or concerns regarding treatment for the above conditions please do not hesitate to contact me. The office telephone contact is [phone]. This note is constructed in part using voice recognition software. While every effort has been made to ensure accuracy telegraph office telephone clerk errors may have been included. Yours sincerely, Alfredo Hernandes MD Coding Level of Care Code Est Pt Level 4 (68042) Diagnoses BPH loc w urin obs/LUTS N40.1 Right kidney stone N20.0 Microscopic hematuria R31.29 CPT Codes Post Residual Void - PVR CPT Code: [id number]-[id number] Void Residual by ultrasound ([id number])
== END 2024-07-22 08:57 | disposition home or self-care (01) ==
PROVIDERS: Visit Provider Urology
DX: N40.1 Benign prostatic hyperplasia with lower urinary tract symptoms (principal); N20.0 Calculus of kidney; R31.29 Other microscopic hematuria
CPT/HCPCS: 99214

== ENCOUNTER → 2024-07-22 08:11 | Outpatient (BNVA) | payer MEDICARE, SELFPAY | PROVIDERS: Visit Provider Urology | DX: R31.29 Other microscopic hematuria (principal); N40.1 Benign prostatic hyperplasia with lower urinary tract symptoms; N13.8 Other obstructive and reflux uropathy; N20.0 Calculus of kidney | CPT/HCPCS: 51798; 81003 ==

== ENCOUNTER 2024-07-22 09:04 | Outpatient (REF) | payer MEDICARE, SELFPAY ==
[2024-07-22 16:48] LABS: Urine Cytology See Pathology rpt
== END 2024-07-22 09:05 | disposition home or self-care (01) ==
LOC: HO.10HDL 09:04
PROVIDERS: Visit Provider Urology
DX: R31.29 Other microscopic hematuria (principal); N40.1 Benign prostatic hyperplasia with lower urinary tract symptoms; N13.8 Other obstructive and reflux uropathy; R33.8 Other retention of urine; N20.0 Calculus of kidney; Z12.5 Encounter for screening for malignant neoplasm of prostate
CPT/HCPCS: 36415; 51798; 81003; 84153; 88112; 99212

== ENCOUNTER 2025-06-10 09:34 | Outpatient (REF) | payer MEDICARE, SELFPAY ==
--- NOTE | ~2025-06-10 | US_ITS ---
EXAMINATION: US RETROPERITONEUM HISTORY: N40.1 - Benign prostatic hyperplasia with lower urinary tract symptoms TECHNIQUE: Real-time grayscale ultrasound imaging of the kidneys was performed and images were reviewed. COMPARISON: Correlation is made with a CT of the abdomen and pelvis with contrast dated 05/27/2023. FINDINGS: Right kidney: The right kidney measures 10.4 x 5.4 x 5.8 cm. Renal parenchymal echotexture and thickness are normal. There are no masses. There is mild fullness of the renal pelvis. There is no hydronephrosis or renal calculi. Left Kidney: The left kidney measures 10.5 x 5.8 x 5.8 cm. Renal parenchymal echotexture and thickness are normal. There are no masses. There is mild fullness of the renal pelvis. There is no hydronephrosis or renal calculi. The urinary bladder demonstrates multiple diverticuli. Bilateral ureteral jets are identified. Before voiding, the urinary bladder measured 18.6 x 10.9 x 12.6 cm, for an estimated volume of 1335 mL. After voiding, the urinary bladder measured 17.0 x 9.0 x 9.7 cm, for an estimated volume of 777 mL. The prostate measures 4.1 x 4.0 x 3.6 cm, for an estimated volume of 30.5 mL. US/US retroperitoneal comp IMPRESSION: 1. Trabeculated urinary bladder. 2. Post void bladder residual of 777 mL. 3. Prostate volume of 30.5 mL. 4. Mild fullness of the bilateral renal pelves without hydronephrosis. This may be on the basis of a full urinary bladder. Electronically signed by: Yaron Celis MD 06/10/2025 11:09 AM EDT
--- OUTSIDE RECORDS SUMMARY | 2025-06-10 10:23 | XMS_ITS ---
Author Name [facility] Organization Unknown Care Team Organization Name Specialty Phone Email Start Date End Da te Formerly [facility] ACO 06/01/[address] [facility] KAYLEIGH JOHNSON Primary Care [email or web address] 10/21/[address] [facility] Termed, PROVIDER Primary Care 08/20/2022 4
--- OUTSIDE RECORDS SUMMARY | 2025-06-10 10:23 | XMS_ITS | Clinical Summary ---
Author Organization [address] Address [address] [place] [phone] Phone Care Team Providers Care Toll Line Mechanic Name Role Phone Jeff White MD Primary Care Provider Allergies Active Allergy Reactions Criticality Noted Date Comments Kngbpnl-Pemxjmugnlkaa-Ronrgmif Other 02/09 Upset stomach Medications aspirin 81 mg EC tablet Take 1 Tablet by mouth daily. Active calcium carbonate/vitam in D3 (CALCIUM 600 + D,3, ORAL) CALCIUM CARBONATE- TAMIN D (CALCIUM 600 + D OR): Take 1 Tab by mouth daily. Active tamsulosin (FLOMAX) 0.4 mg 24 hr capsule Take 1 Capsule by mouth at bedtime. 3 Active amLODIPine (NORVASC) 5 mg tablet Take 1 tablet (5 mg total) by mouth 1 (one) time each day. 90 tablet 1 5 Active atorvastatin (LIPITOR) 10 mg tablet Take 1 tablet (10 mg total) by mouth 1 (one) time each day. 90 tablet 1 5 Active lisinopriL (PRINIVIL,ZESTR IL) 30 mg tablet Take 1 tablet (30 mg total) by mouth 1 (one) time each day. 90 tablet 1 5 Active sodium chloride 0.9 % injection Inject 1,000 mL into the vein every hour. 3 05/17/20 25 Discontinu ed(Therapy completed) atorvastatin (LIPITOR) 10 mg tablet TAKE 1 TABLET BY MOUTH EVERY DAY 30 tablet 5 05/17/20 25 Discontinu ed(Reorder ) lisinopriL (PRINIVIL,ZESTR IL) 30 mg tablet TAKE 1 TABLET BY MOUTH EVERY DAY 30 tablet 5 05/17/20 25 Discontinu ed(Reorder ) amLODIPine (NORVASC) 5 mg tablet TAKE 1 TABLET BY MOUTH EVERY DAY 30 tablet 5 05/17/20 25 Discontinu ed(Reorder ) amLODIPine (NORVASC) 5 mg tablet Take 1 tablet (5 mg total) by mouth 1 (one) time each day. 30 tablet 5 05/17/20 25 Discontinu ed(Duplica te order) Active Problems Problem Noted Date Diagnosed Date Skin lesion of back 11/10/2023 Chronic anemia 11/10/2023 Renal calculi 06/11/2023 Mixed hyperlipidemia 06/11/2023 Lung nodule 06/11/2023 Calculus of gallbladder with out cholecystitis without obstruction 06/11/2023 Benign prostatic hyperplasia without lower urinary tract symptoms 06/11/2023 Prediabetes 07/20/2020 Liver fibrosis 08/05/2017 Overview (09/13/2024): Identified on fibro-sure testing 2016. Consider yearly ultrasound examinations. Essential hypertension, benign 11/28/2010 Encounters Date Type Department Care Team Description 06/03/2025 7:03 AM EDT - 06/03/2025 11:59 PM EDT Hospital Encounter Radiology Department - [address] [phone] Screening for AAA (abdominal aortic aneurysm) Discharge Disposition: Home or Self Care 06/03/2025 7:03 AM EDT - 06/03/2025 11:59 PM EDT Hospital Encounter Radiology Department - [address] [phone] Liver fibrosis Discharge Disposition: Home or Self Care 05/23/2025 Telephone Pulmonology - [address] [phone] Larissa Jackson MA 05/17/2025 9:45 AM EDT Office Visit Adult Medicine [address] [phone] Doe, Lay Susie Cruz, PA Essential hypertension, benign (Primary Dx); Mixed hyperlipidemia; Prediabetes; Lung nodule; Benign prostatic hyperplasia without lower urinary tract symptoms; Screening for prostate cancer; Screening for AAA (abdominal aortic aneurysm); Former smoker; Liver fibrosis 03/23/2025 Telephone Adult Medicine [address] [phone] Nguyen Santoyo MA from Last 3 Months Immunizations Name Administration Dates Next Due COVID-19 (Pfizer/Comirnaty) 12yo and older 08/02/2023 Hepatitis A Adult (Havrix; V aqta) 19yo and older 11/24/2017,05/22/2017 Influenza Quadravalent, MDCK , 0.5ml, with preservative (Flucelvax) 6mo and older 07/10/2017 Influenza trivalent, 0.5mL ( Fluad) 65yo and older 08/02/2023,07/11/2022,07/20/2020,06/22 Influenza trivalent, 0.5mL, preservative free (Fluarix; FluLaval; Fluzone) ages 6mo and older (Afluria) 3 years and older 09/05/2018,10/09/2015,08/17/2014,11/03,09/14/2012 Influenza, Unspecified 07/28/2021 Moderna SARS-CoV-2 COVID-19, mRNA, LNP-S, preservative free 03/28/2022 PPD Test 10/17/2000 Pfizer SARS-CoV-2 COVID-19, mRNA, LNP-S, preservative free 01/30/2021 Pneumococcal conjugate 13 va lent (Prevnar 13, PCV13) 2mo and older 11/17/2018 Pneumococcal polysaccharide 23 valent (Pneumovax 23) 2yo and older 07/20/2020 Td Tetanus diptheria (Tdvax) 7yo and older 07/20/2020 Tdap Tetanus diptheria acell ular pertussis (Boostrix; Adacel) 7yo and older 04/10/2010 Surgical History Surgery Date Site/Laterality Comments HERNIA REPAIR 1992 PROCEDURE: HISTORICAL HERNIA REPAIR/ING MULTIPLE TOOTH EXTRACTIONS PROCEDURE: EACH ADD TOOTH EXTRACTION; COMMENT: all teeth removed COLONOSCOPY 02/16/2001 PROCEDURE: HISTORICAL COLONOSCOPY; COMMENT: normal COLONOSCOPY 1986 PROCEDURE: HISTORICAL COLONOSCOPY; COMMENT: polyp; done in [place] COLONOSCOPY 03/27/2012 PROCEDURE: HISTORICAL COLONOSCOPY; COMMENT: normal SKIN BIOPSY 04/2012 PROCEDURE: BIOPSY OF SKIN LESION; COMMENT: BCC nodular type OTHER SURGICAL HISTORY PROCEDURE: HISTORICAL MELANOMA Medical History Medical History Date Comments Elevated blood pressure 02/09/2009 DX:[place] blood pressure Basal cell carcinoma of skin 05/07/2012 DX: Basal cell carcinoma of skin Personal history of colonic polyps 02/09/2009 DX:Personal history of colonic polyps; COMMENT: 1986. Neg CN 2000. Negative colonoscopy 03/27/2012, no colon cancer screening needed for 10 years. History of basal cell carcinoma 05/07/2012 DX:History of basal cell carcinoma; COMMENT: BCC 04/23 forehead (nodular) History of seizure 1985 DX:History of seizure; COMMENT: 3-4 seizures total [facility], due to alcoholism hospitalized [facility] Hosp x17 days History of alcohol abuse 1986 DX:Hist ory of alcohol abuse; COMMENT: Rehab in [place], [place], [facility] Immune to hepatitis B DX:Immune to hepatitis B History of hepatitis C 04/01/2013 DX:Histor y of hepatitis C; COMMENT: Chronic Hepatitis C Genotype 1A. Tx Started 03/07/17 Harvoni 90-400 mg Take 1 tab daily for 8 weeks. End date 05/02/17. 08/05/2017: HCV/PCR = undetectable = SVR. Liver fibrosis 08/05/2017 DX:Liver fibrosi s; COMMENT: Identified on fibro-sure testing 2016. Consider yearly ultrasound examinations. Skin lesion of back 11/10/2023 Family History Medical History Relation Name Comments Colon cancer Father Alcohol abuse Mother Relation Name Status Comments Brother Alive Heart - palpita tions - needed meds Father (Age 77) DM, saeid ia Maternal Grandfather UK Maternal Grandmother [place] Mother (Age 71) ETOH, phle bitis, smoker, heart, leg amputation Paternal Grandfather UK Paternal Grandmother [place] Sister Alive Palpitations - skipping Social History Tobacco Use Types Packs/Day Years Used Date Smoking Tobacco: Former Cigarettes 1 22.6 0 1966 - 10/13/1988 Smokeless Tobacco: Never Tobacco Cessation:Counseling Given: Not Answered Alcohol Use Standard Drinks/Week Comments No 0 (1 standard drink = 0.6 oz pur e alcohol) Sex and Gender Information Value Date Recorded Sex Assigned at Male 05/26/2025 10:57 PM EDT Legal Sex Male 8:03 AM EST Gender Identity Not on file Sexual Orientation Not on file Obstetrics History Last Filed Vital Signs Vital Sign Reading Time Taken Comments Blood Pressure 130/76 05/17/2025 9:32 AM EDT Pulse 89 05/17/2025 9:32 AM EDT Temperature 36.8 C (98.2 F) 05/17/2025 9:32 AM EDT Respiratory Rate 16 05/17/2025 9:32 AM EDT Oxygen Saturation - - Inhaled Oxygen Concentration - - Weight 78.9 kg (174 lb) 05/17/2025 9:32 AM EDT Height 177.8 cm (5' 10 ) 05/17/2025 9:32 AM EDT Body Mass Index 24.97 05/17/2025 9:32 AM EDT Plan of Treatment Upcoming Encounters Date Type Department Care Team (Late st Contact Info) Description 06/14/2025 11:15 AM EDT Appointment [facility] CT Scan [address] [place] [phone] 06/24/2025 2:00 PM EDT Office Visit Pulmonology - [place] [address] [facility] [address] [place] [phone] Skylar Haywood MD [address] [place] [phone] 08/30/2025 8:00 AM EST Consult Gastroenterology - [place] [facility] [address] [facility] [address] [place] [phone] Judy Driver, CORY [address] [place] [phone] 11/18/2025 11:30 AM EST Office Visit Adult Medicine [address] [phone] Jeff White MD [address] [place] [address] Health Maintenance Due Date Last Done Comments Zoster Vaccines (1 of 2) 1972 Social Influencers of Health Screening 09/21/2022 COVID-19 Vaccine ( season) 2024 08/02/2023, 03/28/2022, 10/02/2021, Additional history exists Falls Risk Assessment 11/10/2024 11/10/2023 Medicare Annual Wellness Visit 11/10/2024 11/10/2023 Influenza Vaccine (#1) 2025 , 07/11/2022, 07/28/2021, Additional history exists Depression Screening 10/12/2025 11/10/2023 Postpon ed from 10/13/2024 (Patient Refused) Colorectal Cancer Screening: Colonoscopy 02/11/2026 02/11/2023 Hypertension/CHF/CAD Annual BMP Blood Test 05/27/2026 05/27/2025, 11/21/2023 RSV Immunization Adult Patients (1 - 1-dose 75+ series) 2028 Cholesterol Screening (Lipid Panel) 05/27/2030 05/27/2025, 11/21/2023 DTaP,Tdap,and Td Vaccines (3 - Td or Tdap) 07/20/2030 07/20/2020, 04/10/2010 Hepatitis A Vaccines Aged Out 11/24/2017, 05/22/20 17 No longer eligible based on patient's age to complete this topic Pneumococcal Vaccine: 50+ Years Completed 07/20/2020, 11/17/2018 Hepatitis C Screening Completed 01/08/2022 Abdominal Aortic Aneurysm (AAA) Screen Completed 06/03/2025 HIB Vaccines Aged Out No longer eligi ble based on patient's age to complete this topic HPV Vaccines Aged Out No longer eligi ble based on patient's age to complete this topic Hepatitis B Vaccines Aged Out No long er eligible based on patient's age to complete this topic IPV Vaccines Aged Out No longer eligi ble based on patient's age to complete this topic MMR Vaccines Aged Out No longer eligi ble based on patient's age to complete this topic Meningococcal ACWY Vaccine Aged Out N o longer eligible based on patient's age to complete this topic Meningococcal B Vaccine Aged Out No l onger eligible based on patient's age to complete this topic RSV Immunization Patients Under 20 months Aged Out No longer eligible based on patient's age to complete this topic Varicella Vaccines Aged Out No longer eligible based on patient's age to complete this topic Procedures Procedure Name Priority Date/Time Associated Diagnosis Comments US ABDOMEN AORTIC ANEURYSM SCREENING Routine 06/03/2025 7:44 AM EDT Screening for AAA (abdominal aortic aneurysm) US ABDOMEN LIMITED Routine 06/03/2025 7: 44 AM EDT Liver fibrosis CBC WITH AUTO DIFFERENTIAL Routine 05/27/2025 7:48 AM EDT Essential hypertension, benign Mixed hyperlipidemia Prediabetes Lung nodule HEMOGLOBIN A1C Routine 05/27/2025 7:48 AM EDT Essential hypertension, benign Mixed hyperlipidemia Prediabetes Lung nodule CBC AND DIFFERENTIAL Routine 05/27/2025 7:48 AM EDT Essential hypertension, benign Mixed hyperlipidemia Prediabetes Lung nodule COMPREHENSIVE METABOLIC PANEL Routine 05/27/2025 7:48 AM EDT Essential hypertension, benign Mixed hyperlipidemia Prediabetes Lung nodule LIPID PANEL WITH REFLEX TO DIRECT LDL Routine 05/27/2025 7:48 AM EDT Essential hypertension, benign Mixed hyperlipidemia Prediabetes Lung nodule PROSTATE SPECIFIC ANTIGEN SCREEN Routine 05/27/2025 7:48 AM EDT Screening for prostate cancer HM DEPRESSION SCREENING Routine 11/10/2023 HM FALLS RISK ASSESSMENT Routine 11/10/2023 HM COLONOSCOPY Routine 02/11/2023 HM HEPATITIS C SCREENING Routine 01/08/2022 from Last 3 Months or Most Recently Relevant to Health Maintenance Results * US Abdomen Aortic Aneurysm Screening (06/03/2025 7:44 AM EDT) Anatomical Region Laterality Modality Abdominal aorta Ultrasound 06/03/2025 11:1 2 AM EDT Narrative 06/03/2025 11:13 AM EDT Ultrasound of the abdominal aorta. History screening for AAA. There is no evidence of AAA. Proximal aorta measures 2.7 cm AP, mid aorta measures 1.9 cm AP, distal aorta measures 1.8 cm AP. Bifurcation and proximal common iliac arteries were not visualized, obscured by the bowel gas. CONCLUSIONS: No evidence of AAA. Nonvisualization of the bifurcation and proximal common iliac arteries. -------- FINAL REPORT -------- Dictated By: Riana Warner Dictated Date: 06/03/2025 11:12 ET Assigned Physician: Riana Warner Reviewed and Electronically Signed By: Riana Warner Signed Date: 06/03/2025 11:13 ET Workstation ID: [id number] Transcribed By: Self Edit Transcribed Date: 06/03/2025 11:12 ET Procedure Note Riana Warner MD - 06/03/2025 Ultrasound of the abdominal aorta. History screening for AAA. There is no evidence of AAA. Proximal aorta measures 2.7 cm AP, mid aortameasures 1.9 cm AP, distal aorta measures 1.8 cm AP. Bifurcation andproximal common iliac arteries were not visualized, obscured by the bowelgas. CONCLUSIONS: No evidence of AAA. Nonvisualization of the bifurcation andproximal common iliac arteries. -------- FINAL REPORT -------- Dictated By: Riana Warner Dictated Date: 06/03/2025 11:12 ET Assigned Physician: Riana Warner Reviewed and Electronically Signed By: Riana Warner Signed Date: 06/03/2025 11:13 ET Workstation ID: [id number] Transcribed By: Self Edit Transcribed Date: 06/03/2025 11:12 ET us Lay BEARD IMG US PROCEDURES Final Result * US Abdomen Limited (06/03/2025 7:44 AM EDT) Anatomical Region Laterality Modality Body Ultrasound 06/03/2025 11:0 9 AM EDT Narrative 06/03/2025 11:12 AM EDT Limited abdominal ultrasound. History hepatic fibrosis. Comparison with prior ultrasound from 12/21/2021. Gallbladder is unremarkable. There is dilatation of the common biliary duct measuring up to 1.1 cm. Previously 0.7 cm. There is no intrahepatic biliary ducts dilatation. Liver was visualized measuring 16.3 cm in long axis. There is arm mild lobulation of the contour and somewhat coarse echotexture. No focal lesions identified. There is normal flow in the portal vein. Visualized portion of the IVC is unremarkable. Pancreas was visualized with mild dilatation of the pancreatic duct measuring up to 4 mm. Pancreatic tail is obscured due to bowel gas artifact. Right kidney is normal in size and echogenicity. CONCLUSIONS: Mild lobulation of the contour of the liver with coarse echotexture. No focal lesions identified. Dilatation of common biliary duct and pancreatic duct. MRI of the abdomen with MRCP is recommended for further assessment. -------- FINAL REPORT -------- Dictated By: Riana Warner Dictated Date: 06/03/2025 11:09 ET Assigned Physician: Riana Warner Reviewed and Electronically Signed By: Riana Warner Signed Date: 06/03/2025 11:12 ET Workstation ID: [id number] Transcribed By: Self Edit Transcribed Date: 06/03/2025 11:09 ET Procedure Note Riana Warner MD - 06/03/2025 Limited abdominal ultrasound. History hepatic fibrosis. Comparison with prior ultrasound from 12/21/2021. Gallbladder isunremarkable. There is dilatation of the common biliary duct measuring upto 1.1 cm. Previously 0.7 cm. There is no intrahepatic biliary ductsdilatation. Liver was visualized measuring 16.3 cm in long axis. There isarm mild lobulation of the contour and somewhat coarse echotexture. Nofocal lesions identified. There is normal flow in the portal vein.Visualized portion of the IVC is unremarkable. Pancreas was visualizedwith mild dilatation of the pancreatic duct measuring up to 4 mm.Pancreatic tail is obscured due to bowel gas artifact. Right kidney isnormal in size and echogenicity. CONCLUSIONS: Mild lobulation of the contour of the liver with coarseechotexture. No focal lesions identified. Dilatation of common biliary duct and pancreatic duct. MRI of the abdomenwith MRCP is recommended for further assessment. -------- FINAL REPORT -------- Dictated By: Riana Warner Dictated Date: 06/03/2025 11:09 ET Assigned Physician: Riana Warner Reviewed and Electronically Signed By: Riana Warner Signed Date: 06/03/2025 11:12 ET Workstation ID: [id number] Transcribed By: Self Edit Transcribed Date: 06/03/2025 11:09 ET Lay BEARD IMG US PROCEDURES Final Result * Prostate specific antigen screen (05/27/2025 7:48 AM EDT) Pathologist [facility] PSA 2.26 0.00 - 4.00 ng/mL LAB CHEMISTRY METHOD 05/27/2025 1:[address] [facility] Blood Venous blood specimen / Unknown Venipuncture / Unknown 05/27/2025 7:48 AM EDT 05/27/2025 7:[address] [facility] - 05/27/2025 1:01 PM EDT The Siemens Advia Centaur Chemiluminescent Immunoassay is used. Results obtained with different assay methods or kits cannot be used interchangeably. Results cannot be interpreted as absolute evidence of the presence or absence of malignant disease. Lay BEARD LAB BLOOD ORDERABLES Fin al Result [facility] [address] [place] [address], [place] [phone] * Lipid panel with reflex to direct LDL (05/27/2025 7:48 AM EDT) Pathologist [facility] Cholesterol 130 0 - 200 mg/dL LAB CHEMISTRY METHOD 05/27/2025 11:[address] [facility] Triglycerides 48 0 - 150 mg/dL LAB CHEMISTRY METHOD 05/27/2025 11:[address] [facility] HDL 65 >=40 mg/dL LAB CHEMISTRY METHOD 05/27/2025 11:[address] [facility] LDL Calculated 55 0 - 100 mg/dL LAB CHEMISTRY METHOD 05/27/2025 11:[address] [facility] Comment:Estimated LDL Calcul ated using equation: Total cholesterol - HDL cholesterol - (Triglycerides/5) VLDL Cholesterol Rocky 9.6 mg/dL LAB CHEMISTRY METHOD 05/27/2025 11:[address] [facility] Non HDL Chol. (LDL+VLDL) 65 <145 mg/dL LAB CHEMISTRY METHOD 05/27/2025 11:[address] [facility] Chol/HDL Ratio 2.0 0.0 - 4.4 LAB CHEMISTRY METHOD 05/27/2025 11:[address] [facility] Blood Venous blood specimen / Unknown Venipuncture / Unknown 05/27/2025 7:48 AM EDT 05/27/2025 7:48 AM EDT Lay BEARD LAB BLOOD ORDERABLES Fin al Result [facility] [address] [place] [address], [place] [phone] * (ABNORMAL) CBC auto differential (05/27/2025 7:48 AM EDT) WBC 6.5 4.8 - 10.8 K/mcL LAB HEMETOLOGY METHOD 05/27/2025 10:[address] [facility] RBC 4.70 4.50 - 5.50 M/[facility] LAB HEMETOLOGY METHOD 05/27/2025 10:[address] [facility] Hemoglobin 12.8(L) 13.5 - 17.5 g/dL LAB HEMETOLOGY METHOD 05/27/2025 10:[address] [facility] Hematocrit 39.7(L) 42.0 - 54.0 % LAB HEMETOLOGY METHOD 05/27/2025 10:09 AM [facility] MCV 83.9 79.0 - 98.0 FL LAB HEMETOLOGY METHOD 05/27/2025 10:09 AM [facility] MCH 27.1 27.0 - 32.0 pcg LAB HEMETOLOGY METHOD 05/27/2025 10:09 AM [facility] MCHC 32.2 32.0 - 37.0 g/dL LAB HEMETOLOGY METHOD 05/27/2025 10:09 AM [facility] RDW 14.8 11.0 - 15.0 % LAB HEMETOLOGY METHOD 05/27/2025 10:09 AM [facility] Platelets 250 130 - 400 K/mcL LAB HEMETOLOGY METHOD 05/27/2025 10:09 AM [facility] MPV 9.3 7.0 - 11.0 FL LAB HEMETOLOGY METHOD 05/27/2025 10:09 AM [facility] NRBC 0.0 <1.0 % LAB HEMETOLOGY METHOD 05/27/2025 10:09 AM [facility] NRBC Absolute 0.00 <0.10 K/mcL LAB HEMETOLOGY METHOD 05/27/2025 10:09 AM [facility] Neutrophils Relative 68.5 % LAB HEMETOLOGY METHOD 05/27/2025 10:09 AM [facility] Lymphocytes Relative 19.2 % LAB HEMETOLOGY METHOD 05/27/2025 10:09 AM [facility] Monocytes Relative 7.4 % LAB HEMETOLOGY METHOD 05/27/2025 10:09 AM [facility] Eosinophils Relative 3.5 % LAB HEMETOLOGY METHOD 05/27/2025 10:09 AM [facility] Basophils Relative 1.1 % LAB HEMETOLOGY METHOD 05/27/2025 10:[address] [facility] Immature Granulocytes Relative 0.3 % LAB HEMETOLOGY METHOD 05/27/2025 10:[address] [facility] Neutrophils Absolute 4.46 1.50 - 7.00 K/mcL LAB HEMETOLOGY METHOD 05/27/2025 10:[address] [facility] Lymphocytes Absolute 1.25 1.00 - 5.00 K/mcL LAB HEMETOLOGY METHOD 05/27/2025 10:[address] [facility] Monocytes Absolute 0.48 0.20 - 1.00 K/mcL LAB HEMETOLOGY METHOD 05/27/2025 10:[address] [facility] Eosinophils Absolute 0.23 0.00 - 0.50 K/mcL LAB HEMETOLOGY METHOD 05/27/2025 10:[address] [facility] Basophils Absolute 0.07 0.00 - 0.20 K/mcL LAB HEMETOLOGY METHOD 05/27/2025 10:[address] [facility] Immature Granulocytes Absolute 0.02 0.00 - 0.03 K/mcL LAB HEMETOLOGY METHOD 05/27/2025 10:[address] [facility] Blood Venous blood specimen / Unknown Venipuncture / Unknown 05/27/2025 7:48 AM EDT 05/27/2025 7:48 AM EDT us Lay BEARD LAB BLOOD ORDERABLES Fin al Result [facility] [address] [place] [address], * Hemoglobin A1c (05/27/2025 7:48 AM EDT) Hemoglobin A1C 6.0 <6.5 % LAB CHEMISTRY METHOD 05/27/2025 11:31 AM [facility] Mean Bld Glu Estim. 126 mg/dL LAB CHEMISTRY METHOD 05/27/2025 11:31 AM [facility] Blood Venous blood specimen / Unknown Venipuncture / Unknown 05/27/2025 7:48 AM EDT 05/27/2025 7:48 AM EDT Lay BEARD LAB BLOOD ORDERABLES Fin al Result [facility] [address] [place] [address], * (ABNORMAL) Comprehensive metabolic panel (05/27/2025 7:48 AM EDT) Sodium 137 133 - 145 mmol/L LAB CHEMISTRY METHOD 05/27/2025 11:30 AM [facility] Potassium 4.2 3.5 - 5.5 mmol/L LAB CHEMISTRY METHOD 05/27/2025 11:30 AM [facility] Chloride 103 96 - 110 mmol/L LAB CHEMISTRY METHOD 05/27/2025 11:30 AM [facility] CO2 26 21 - 32 mmol/L LAB CHEMISTRY METHOD 05/27/2025 11:30 AM [facility] Anion Gap 8 3 - 11 LAB CHEMISTRY METHOD 05/27/2025 11:30 AM [facility] Glucose 111(H) 70 - 100 mg/dL LAB CHEMISTRY METHOD 05/27/2025 11:30 AM [facility] BUN 12 5 - 25 mg/dL LAB CHEMISTRY METHOD 05/27/2025 11:30 AM [facility] Creatinine 1.06 0.70 - 1.30 mg/dL LAB CHEMISTRY METHOD 05/27/2025 11:30 AM EDT [facility] eGFR 75 >=60 mL/min/1. 73m2 LAB CHEMISTRY METHOD 05/27/2025 11:30 AM [facility] Comment:Calculation based on the Chronic Kidney Disease Epidemiology Collaboration (CKD-EPI) equation refit without adjustment for race. BUN/Creatinine Ratio 11.3 LAB CHEMISTRY METHOD 05/27/2025 11:30 AM [facility] Calcium 9.8 8.5 - 10.5 mg/dL LAB CHEMISTRY METHOD 05/27/2025 11:30 AM [facility] AST (SGOT) 21 10 - 42 unit/L LAB CHEMISTRY METHOD 05/27/2025 11:30 AM [facility] ALT (SGPT) 29 10 - 60 unit/L LAB CHEMISTRY METHOD 05/27/2025 11:30 AM [facility] Alkaline Phosphatase 79 42 - 121 unit/L LAB CHEMISTRY METHOD 05/27/2025 11:30 AM [facility] Total Protein 7.0 6.0 - 8.0 g/dL LAB CHEMISTRY METHOD 05/27/2025 11:30 AM [facility] Albumin 4.2 3.2 - 5.0 g/dL LAB CHEMISTRY METHOD 05/27/2025 11:30 AM [facility] Total Bilirubin 0.7 0.0 - 1.4 mg/dL LAB CHEMISTRY METHOD 05/27/2025 11:30 AM [facility] Blood Venous blood specimen / Unknown Venipuncture / Unknown 05/27/2025 7:48 AM EDT 05/27/2025 7:48 AM EDT us Lay EBARD LAB BLOOD ORDERABLES Fin al Result [facility] [address] [place] [address], * Falls Risk Assessment (11/10/2023) Falls Risk Assessment Abstracted Historical Provider MD HEALTH MAINTENANCE Final Result * Depression Screening (11/10/2023) Depression Screening Abstracted [facility] Provider HEALTH MAINTENANCE Final Result * Colonoscopy (02/11/2023) Colonoscopy Abstracted, No interpretation Anatomical Region Laterality Modality Other [facility] Provider HEALTH MAINTENANCE Final Result * Hepatitis C Screening (01/08/2022) Pathologist [facility] Hepatitis C Screening Abstracted [facility] Provider HEALTH MAINTENANCE Final Result from Last 3 Months or Most Recently Relevant to Health Maintenance Insurance MEDICARE [facility] Care Teams Toll Line Mechanic Relationship Specialty Start Date End Date Jeff White MD [address] [place] [address] PCP - General Internal Medicine 04/18/22
== END 2025-06-10 09:35 | disposition home or self-care (01) ==
LOC: HO.US 09:34
PROVIDERS: PCP Internal Medicine; Visit Provider Urology
DX: N40.1 Benign prostatic hyperplasia with lower urinary tract symptoms (principal); N20.0 Calculus of kidney
CPT/HCPCS: 76770

== ENCOUNTER → 2025-06-10 09:38 | Outpatient (BNV) | payer MEDICARE, SELFPAY | PROVIDERS: PCP Internal Medicine; Visit Provider Radiology Diagnostic Radiology | DX: N40.1 Benign prostatic hyperplasia with lower urinary tract symptoms (principal) | CPT/HCPCS: 76770 ==

== ENCOUNTER 2025-07-21 07:45 | Outpatient (REF) | payer MEDICARE, SELFPAY | END 2025-07-21 07:46 | disposition home or self-care (01) | LOC: HO.10HDL 07:45 | PROVIDERS: Visit Provider Urology | DX: N40.1 Benign prostatic hyperplasia with lower urinary tract symptoms (principal); R33.9 Retention of urine, unspecified | CPT/HCPCS: 51798; 99212 ==

== ENCOUNTER 2025-07-21 07:55 | Outpatient (AMB) | payer MEDICARE, SELFPAY ==
--- NOTE | 2025-07-21 08:13 | A.OFFVIS_ITS ---
Intake Visit Reasons: 1y/US/PVR Intake Note: Patient is present for a 1yr/US/PVR * 06/10 Retroperitoneal US Urology Medication:TAMSULOSIN Antibiotic Allergy:NONE Blood Thinner:NONE PVR:474ML Public Service Director Required: No Allergies No Known Allergies Allergy (Verified 07/21/25 08:13) Medication List - Last Reconciled 07/21/25 by Alfredo Hernandes MD amlodipine 5 mg PO DAILY atorvastatin 10 mg PO DAILY ferrous sulfate 325 mg PO DAILY folic acid 1 mg PO DAILY lisinopril 30 mg PO DAILY tamsulosin (Flomax) 0.4 mg PO BID HPI Comments Details: 07/21/25--Samy is a 70-year-old male who is followed for BPH he is currently on Flomax he is here for 1 year follow-up he had an ultrasound retroperitoneum on 06/10/2025 which noted significant postvoid residual over 700. Bladder scan toda y PVR is 474 mL. Kidneys mild calices bilaterally no jeff hydronephrosis. Bladder is trabeculated. History of Present Illness The patient is a 70-year-old male presenting with a one-year follow-up for Benign Prostatic Hyperplasia (BPH). He is currently on tamsulosin (Flomax) for management of BPH. An ultrasound of the retroperitoneum performed on 06/10/25 revealed significant post-void residual urine volume over 700 mL, indicating urinary retention. A bladder scan conducted today showed a post-void residual volume of 474 mL, which is an improvement from the previous measurement. The patient reports no pain or discomfort associated with urinary retention. The ultrasound also noted a trabeculated bladder, suggesting changes in the bladder muscle due to chronic urinary retention. Additionally, there is mild fullness of the renal calyces bilaterally, but no jeff hydronephrosis was observed. Results - Ultrasound retroperitoneum (06/10/25): Significant post-void residual 777 mL - Bladder scan today: Post-void residual volume of 474 mL - Ultrasound findings: Trabeculated bladder, mild fullness of renal calyces bilaterally, no jeff hydronephrosis, no renal calculi Plan 1. Benign Prostatic Hyperplasia (Bph) - Continue tamsulosin, increase to twice daily dosing. PSA screening - Schedule cystoscopy to evaluate bladder condition further. - Monitor for dizziness with increased tamsulosin dosage, adjust as needed. 2. Urinary Retention - Monitor post-void residual volumes to assess improvement. - Evaluate kidney function due to potential pressure from bladder distension. 07/22/24--Samy is a 69-year-old male who presents today for a follow-up. Followed for BPH symptoms and renal calculi. On flomax. Denies irritative voiding symptoms. Reviewed PSA 07/22/24-2.40ng/mL. UA - microscopic hematuria. Will send urine for cytology. 08/04/23--He is followed today for lab results. He was last seen by me on 06/05/2023 for voiding trial. PSA screening was ordered, and Flomax 0.4 mg daily was ordered during that time.? [place] catheter was removed during that time. I reviewed the PSA results from 07/23/23 revealed 2.1 ng/mL. In discussion with the patient today, he states that he has been compliant with Flomax every evening. He states that he has good urinary flow. He has not had any issues with hesitancy and denies any irritative voiding symptoms. Exam - prostate m oderately enlarged, irregular Testin06/05/23- Imaging - CT of the abdomen/pelvis results from 05/27/2023 revealed Urinary bladder distention. Correlate regarding possible urinary retention. Prominent heterogeneous prostate. Nonobstructing right lower pole renal calculus. [facility] Medical History Hepatitis C Family History Father No problems noted. Mother No problems noted. Social History Alcohol intake: former Review of Systems Const All systems reviewed & are unremarkable except as noted in HPI and below Reports no additional complaints Eyes Reports no additional complaints ENT Reports no additional complaints Card Reports no additional complaints Resp Reports no additional complaints GI Reports no additional complaints Reports as per HPI Musc Reports no additional complaints Skin/Breast Reports system reviewed and no additional complaints, except as documented Neuro Reports no additional complaints Psych Reports no additional complaints Endo Reports no additional complaints Cj/Lymph Reports no additional complaints Aller/Immun Reports no additional complaints Results Reviewed Results Reviewed: Date of Service: 06/10/25 HISTORY: N40.1 - Benign prostatic hyperplasia with lower urinary tract symptoms TECHNIQUE: Real-time grayscale ultrasound imaging of the kidneys was performed and images were reviewed. COMPARISON: Correlation is made with a CT of the abdomen and pelvis with contrast dated 05/27/2023. FINDINGS: Right kidney: The right kidney measures 10.4 x 5.4 x 5.8 cm. Renal parenchymal echotexture and thickness are normal. There are no masses. There is mild fullness of the renal pelvis. There is no hydronephrosis or renal calculi. Left Kidney: The left kidney measures 10.5 x 5.8 x 5.8 cm. Renal parenchymal echotexture and thickness are normal. There are no masses. There is mild fullness of the renal pelvis. There is no hydronephrosis or renal calculi. The urinary bladder demonstrates multiple diverticuli. Bilateral ureteral jets are identified. Before voiding, the urinary bladder measured 18.6 x 10.9 x 12.6 cm, for an estimated volume of 1335 mL. After voiding, the urinary bladder measured 17.0 x 9.0 x 9.7 cm, for an estimated volume of 777 mL. The prostate measures 4.1 x 4.0 x 3.6 cm, for an estimated volume of 30.5 mL. IMPRESSION: 1. Trabeculated urinary bladder. 2. Post void bladder residual of 777 mL. 3. Prostate volume of 30.5 mL. 4. Mild fullness of the bilateral renal pelves without hydronephrosis. This may be on the basis of a full urinary bladder. Date of Service: 05/27/23 EXAMINATION: CT ABDOMEN AND PELVIS WITH CONTRAST? CLINICAL INFORMATION: Abdominal pain, nausea and vomiting.? COMPARISON: None available. FINDINGS: CLERICAL METHODS ANALYST: Nonobstructive bowel pattern. Degenerative changes, grade 1 anterolisthesis L4 on L5. LUNG BASES: 5 mm left lower lobe subpleural pulmonary nodule, 8:9. Left lower lobe atelectasis. LIVER, GALLBLADDER, AND BILIARY TREE: The liver is normal in size, shape, and attenuation. No focal hepatic lesion or biliary ductal dilatation is present. The gallbladder contains calcification near the neck. No wall thickening, pericholecystic fluid or inflammatory changes.? PANCREAS: Unremarkable.? SPLEEN: Unremarkable.? ADRENAL GLANDS: Unremarkable.? KIDNEYS AND URETERS: The kidneys are normal in size, shape, and attenuation. No hydronephrosis or hydroureter. 2 mm right lower pole nonobstructing calculus. Too small to characterize left renal hypodensities, likely cysts. No perinephric stranding.?? BLADDER: Urinary bladder distention with multiple diverticula. GASTROINTESTINAL TRACT: Well distended unremarkable stomach. Nonobstructive bowel pattern. Unremarkable terminal ileum and appendix. Diverticulosis with mild wall thickening descending colon. No pericolonic inflammatory changes. ABDOMINAL WALL: No significant hernia is appreciated.? LYMPH NODES: Nonspecific inguinal lymph nodes bilaterally. Bilateral fat filled inguinal hernias. VASCULAR: Atherosclerotic calcifications nonaneurysmal aorta and tortuous iliac arteries. Normal caliber inferior vena cava. Patent portal system. PELVIC VISCERA: Prominent, heterogeneous prostate. OSSEOUS STRUCTURES: Multilevel degenerative changes and disc space narrowings. Grade 1 anterolisthesis L4 and L4 on L5. IMPRESSION: Urinary bladder distention. Correlate regarding possible urinary retention. Prominent heterogeneous prostate. Nonobstructing right lower pole renal calculus. Cholelithiasis without other CT evidence of acute cholecystitis. 5 mm left lower lobe pulmonary nodule. Per Fleischner criteria, in low-risk patient, no routine follow-up. In unknown or high risk, optional CT at 12 months, is stable at 12 months no further follow-up. Assessment & Plan Assessment & Plan (1) Urinary retention: Code(s): R33.9 - Retention of urine, unspecified Category: Medical (2) BPH loc w urin obs/LUTS: Code(s): N40.1 - Benign prostatic hyperplasia with lower urinary tract symptoms Category: Medical Plan Plan 1. Benign Prostatic Hyperplasia (Bph) - Continue tamsulosin, increase to twice daily dosing. PSA screening - Schedule cystoscopy to evaluate bladder condition further. - Monitor for dizziness with increased tamsulosin dosage, adjust as needed. 2. Urinary Retention - Monitor post-void residual volumes to assess improvement. - Evaluate kidney function due to potential pressure from bladder distension. Medications: Changed From tamsulosin (Flomax) 0.4 mg PO BEDTIME 90 caps 3RF To tamsulosin (Flomax) 0.4 mg PO BID 180 caps 3RF Patient Instructions: The patient had an opportunity to ask questions regarding treatment plan. The patient expressed understanding and agreement with the above treatment plan. The patient is aware they should contact our office by phone for worsening of their current condition or the appearance of new symptoms. Compliance is encouraged with any medications and followup testing that is ordered. It is a privilege to be allowed the opportunity to participate in the urologic care of your patient. If you have any questions or concerns regarding treatment for the above conditions please do not hesitate to contact me. The office telephone contact is [phone]. This note is constructed in part using voice recognition software. While every effort has been made to ensure accuracy dental office assistant errors may have been inc luded. Yours sincerely, Alfredo Hernandes MD Scribe Plan - Not visible on output: Patient was informed and verbally consented to the use of an ambient scribe for clinic note documentation during this visit. Coding Level of Care Code Est Pt Level 4 (67221) Complex EM visit Add On G2211 Diagnoses Urinary retention R33.9 BPH loc w urin obs/LUTS N40.1
== END 2025-07-21 08:57 | disposition home or self-care (01) ==
LOC: HO.HUSH 07:55
PROVIDERS: Visit Provider Urology
DX: R33.9 Retention of urine, unspecified (principal); N40.1 Benign prostatic hyperplasia with lower urinary tract symptoms
CPT/HCPCS: 99214; G2211

== ENCOUNTER 2025-08-03 07:33 | Outpatient (REF) | payer MEDICARE, SELFPAY ==
--- OUTSIDE RECORDS SUMMARY | 2025-08-03 07:36 | XMS_ITS | Clinical Summary ---
Author Organization [address] Address [address] [place] [phone] Phone Care Team Providers Care Owner/Operator Name Role Phone Jeff White MD Primary Care Provider Allergies Active Allergy Reactions Criticality Noted Date Comments Qirsoth-Saljfcjlyvhcg-Ngkqcflf Other 02/09 Upset stomach Medications aspirin 81 mg EC tablet Take 1 Tablet by mouth daily. Active calcium carbonate/vitam in D3 (CALCIUM 600 + D,3, ORAL) CALCIUM CARBONATE- TAMIN D (CALCIUM 600 + D OR): Take 1 Tab by mouth daily. Active tamsulosin (FLOMAX) 0.4 mg 24 hr capsule Take 1 Capsule by mouth at bedtime. 06/05/2023 Active amLODIPine (NORVASC) 5 mg tablet Take 1 tablet (5 mg total) by mouth 1 (one) time each day. 90 tablet 1 05/17/2025 Active atorvastatin (LIPITOR) 10 mg tablet Take 1 tablet (10 mg total) by mouth 1 (one) time each day. 90 tablet 1 05/17/2025 Active lisinopriL (PRINIVIL,ZESTR IL) 30 mg tablet Take 1 tablet (30 mg total) by mouth 1 (one) time each day. 90 tablet 1 05/17/2025 Active Active Problems Problem Noted Date Diagnosed Date [...] Encounters Date Type Department Care Team Description [facility] [address] [phone] Larissa Jackson MA 06/10/2025 Telephone Adult Medicine [address] [phone] Jeff White MD 06/03/2025 7:03 AM EDT - 06/03/2025 11:59 PM EDT Hospital Encounter Radiology Department [address] [phone] Screening for AAA (abdominal aortic aneurysm) Discharge Disposition: Home or Self Care 06/03/2025 7:03 AM EDT - 06/03/2025 11:59 PM EDT Hospital Encounter Radiology Department - [address] [phone] Liver fibrosis Discharge Disposition: Home or Self Care 05/23/2025 Telephone Pulmonology [address] [phone] Larissa Jackson MA 05/17/2025 9:45 AM EDT Office Visit Adult Medicine [address] [phone] Lay Doe PA Essential hypertension, benign (Primary Dx); Mixed hyperlipidemia; Prediabetes; Lung nodule; Benign prostatic hyperplasia without lower urinary tract symptoms; Screening for prostate cancer; Screening for AAA (abdominal aortic aneurysm); Former smoker; Liver fibrosis; Dilated bile duct from Last 3 Months Immunizations Immunization Administration Dates Next Due COVID-19 (Pfizer/Comirnaty) 10yo [...] PROCEDURE: HISTORICAL COLONOSCOPY; COMMENT: polyp; done in [place] COLONOSCOPY 03/27/2012 PROCEDURE: HISTORICAL COLONOSCOPY; COMMENT: normal SKIN BIOPSY 04/2012 PROCEDURE: BIOPSY OF SKIN LESION; COMMENT: BCC nodular type OTHER SURGICAL HISTORY PROCEDURE: HISTORICAL MELANOMA Medical History Medical History Date Comments Elevated blood pressure 02/09/2009 DX:[place] blood pressure Basal cell carcinoma of [...] DX:History of seizure; COMMENT: 3-4 seizures total [facility], due to alcoholism hospitalized [facility] x17 days History of alcohol abuse 1986 DX:Hist ory of alcohol abuse; COMMENT: Rehab in [place], [place], [facility] Immune to hepatitis [...] (Age 75) DM, saeid ia Maternal Grandfather Maternal Grandmother Mother (Age 71) ETOH, phle bitis, smoker, heart, leg amputation Paternal Grandfather Paternal Grandmother [place] Sister Alive Palpitations - [...] Care Team (Late st Contact Info) Description 08/10/2025 9:15 AM EDT Appointment Radiology Department - [place] [address] [place], [place] [phone] 08/30/2025 8:00 AM EST Consult Gastroenterology - [address] [facility] [address] [place] [address] Judy Driver, LAB PACK CHEMIST [address] [facility] [address] [place] [address] 11/18/2025 11:30 AM EST Office Visit Adult Medicine [address] [id number] [place], [place] [phone] Jeff White MD [address] [place], [place] Health Maintenance Due Date Last Done Comments Zoster Vaccines (1 of 2) 1972 Social Influencers of Health Screening 09/21/2022 Falls Risk Assessment 11/10/2024 11/10/2023 Medicare Annual Wellness Visit 11/10/2024 11/10/2023 COVID-19 Vaccine ( season) 2025 08/02/2023, 03/28/2022, 10/02/2021, Additional history exists Influenza Vaccine (#1) 2025 , 08/02/2023, 07/11/2022, Additional history exists Depression Screening 10/12/2025 11/10/2023 [...] Procedure Name Priority Date/Time Associated Diagnosis Comments EXTERNAL ULTRASOUND REPORT 06/10/2025 EXTERNAL ULTRASOUND REPORT 06/10/2025 US ABDOMEN AORTIC ANEURYSM SCREENING Routine 06/03/2025 [...] prostate cancer HM DEPRESSION SCREENING Routine 11/10/2023 FALLS RISK ASSESSMENT Routine 11/10/2023 COLONOSCOPY Routine 02/11/2023 HEPATITIS C SCREENING Routine 01/08/2022 from Last 3 Months or Most Recently Relevant to Health Maintenance Results * External Ultrasound Report (06/10/2025) Only the most recent of2 resultswithin the time period is included. Anatomical Region Laterality Modality Ultrasound us Provider [facility] US PROCEDURES Final Result * US Abdomen Aortic Aneurysm Screening (06/03/2025 [...] Signed Date: 06/03/2025 11:13 ET Workstation ID: [id number] Transcribed By: Self Edit Transcribed Date: 06/03/2025 [...] Date: 06/03/2025 11:12 ET Assigned Physician: Riana Wanrer Reviewed and Electronically Signed By: Riana Warner Signed Date: 06/03/2025 11:13 ET Workstation ID: [id number] Transcribed By: Self Edit Transcribed Date: 06/03/2025 11:12 ET us Lay BEARD IMR[facility] US PROCEDURES Final Result * US Abdomen [...] Signed Date: 06/03/2025 11:12 ET Workstation ID: [id number] Transcribed By: Self Edit Transcribed Date: 06/03/2025 [...] Signed Date: 06/03/2025 11:12 ET Workstation ID: [id number] Transcribed By: Self Edit Transcribed Date: 06/03/2025 11:09 ET Lay [facility] [place] PROCEDURES Final Result * Prostate specific antigen screen (05/27/2025 7:48 AM EDT) Pathologist [facility] PSA 2.26 0.00 - 4.00 ng/mL LAB CHEMISTRY METHOD 05/27/2025 1:01 PM EDT [facility] Blood Venous blood specimen / Unknown Venipuncture / Unknown 05/27/2025 7:48 AM EDT 05/27/2025 7:48 AM EDT Narrative [facility] - 05/27/2025 1:01 PM EDT The Siemens Advia RefferedAgent.comaur Chemiluminescent Immunoassay is used. Results obtained with different assay methods or kits cannot be used interchangeably. Results cannot be interpreted as absolute evidence of the presence or absence of malignant disease. Lay BEARD LAB BLOOD ORDERABLES Fin al Result [facility] [address] [place] [address], [place] [phone] * Lipid panel with reflex to direct LDL (05/27/2025 7:48 AM EDT) [facility] Cholesterol 130 0 - 200 mg/dL LAB CHEMISTRY METHOD 05/27/2025 11:35 AM EDT [facility] Triglycerides 48 0 - 150 mg/dL LAB CHEMISTRY METHOD 05/27/2025 11:35 AM EDT [facility] HDL 65 >=40 mg/dL LAB CHEMISTRY METHOD 05/27/2025 11:35 AM EDT [facility] LDL Calculated 55 0 - 100 mg/dL LAB CHEMISTRY METHOD 05/27/2025 11:35 AM EDT [facility] Comment:Estimated LDL Calcul ated using equation: Total cholesterol - HDL cholesterol - (Triglycerides/5) VLDL Cholesterol Rocky 9.6 mg/dL LAB CHEMISTRY METHOD 05/27/2025 11:35 AM EDT [facility] Non HDL Chol. (LDL+VLDL) 65 <145 mg/dL LAB CHEMISTRY METHOD 05/27/2025 11:35 AM EDT [facility] Chol/HDL Ratio 2.0 0.0 - 4.4 LAB CHEMISTRY METHOD 05/27/2025 11:35 AM EDT [facility] Blood Venous blood specimen / Unknown Venipuncture / Unknown 05/27/2025 7:48 AM EDT 05/27/2025 7:48 AM EDT Lay BEARD LAB BLOOD ORDERABLES Fin al Result [facility] [address] [place] [address], [place] [phone] * (ABNORMAL) CBC auto differential (05/27/2025 7:48 AM EDT) WBC 6.5 4.8 - 10.8 K/mcL LAB HEMETOLOGY METHOD 05/27/2025 10:09 AM [facility] RBC 4.70 4.50 - 5.50 M/mcL LAB HEMETOLOGY METHOD 05/27/2025 10:09 AM [facility] Hemoglobin 12.8(L) 13.5 - 17.5 g/dL LAB HEMETOLOGY METHOD 05/27/2025 10:09 AM [facility] Hematocrit 39.7(L) 42.0 - 54.0 % LAB HEMETOLOGY METHOD 05/27/2025 10:09 AM [facility] MCV 83.9 79.0 - 98.0 FL LAB HEMETOLOGY METHOD 05/27/2025 10:09 AM [facility] MCH 27.1 27.0 - 32.0 pcg LAB HEMETOLOGY METHOD 05/27/2025 10:09 AM [facility] MCHC 32.2 32.0 - 37.0 g/dL LAB HEMETOLOGY METHOD 05/27/2025 10:09 AM [facility] RDW 14.8 11.0 - 15.0 % LAB HEMETOLOGY METHOD 05/27/2025 10:09 AM [facility] Platelets 250 130 - 400 K/mcL LAB HEMETOLOGY METHOD 05/27/2025 10:09 AM [facility] MPV 9.3 7.0 - 11.0 FL LAB HEMETOLOGY METHOD 05/27/2025 10:09 AM [facility] NRBC 0.0 <1.0 % LAB HEMETOLOGY METHOD 05/27/2025 10:09 AM [facility] NRBC Absolute 0.00 <0.10 K/mcL LAB HEMETOLOGY METHOD 05/27/2025 10:09 AM [facility] Neutrophils Relative 68.5 % LAB HEMETOLOGY METHOD 05/27/2025 10:09 AM [facility] Lymphocytes Relative 19.2 % LAB HEMETOLOGY METHOD 05/27/2025 10:09 AM [facility] Monocytes Relative 7.4 % LAB HEMETOLOGY METHOD 05/27/2025 10:09 AM [facility] Eosinophils Relative 3.5 % LAB HEMETOLOGY METHOD 05/27/2025 10:09 AM [facility] Basophils Relative 1.1 % LAB HEMETOLOGY METHOD 05/27/2025 10:09 AM [facility] Immature Granulocytes Relative 0.3 % LAB HEMETOLOGY METHOD 05/27/2025 10:09 AM [facility] Neutrophils Absolute 4.46 1.50 - 7.00 K/mcL LAB HEMETOLOGY METHOD 05/27/2025 10:09 AM [facility] Lymphocytes Absolute 1.25 1.00 - 5.00 K/mcL LAB HEMETOLOGY METHOD 05/27/2025 10:09 AM EDT [facility] Monocytes Absolute 0.48 0.20 - 1.00 K/[facility] LAB HEMETOLOGY METHOD 05/27/2025 10:09 AM EDT [facility] Eosinophils Absolute 0.23 0.00 - 0.50 K/[facility] LAB HEMETOLOGY METHOD 05/27/2025 10:09 AM EDT [facility] Basophils Absolute 0.07 0.00 - 0.20 K/[facility] LAB HEMETOLOGY METHOD 05/27/2025 10:09 AM EDT [facility] Immature Granulocytes Absolute 0.02 0.00 - 0.03 K/[facility] LAB HEMETOLOGY METHOD 05/27/2025 10:09 AM EDT [facility] Blood Venous blood specimen / Unknown Venipuncture / Unknown 05/27/2025 7:48 AM EDT 05/27/2025 7:48 AM EDT Lay BEARD LAB BLOOD ORDERABLES Fin al Result [facility] [address] [place] [address], * Hemoglobin A1c (05/27/2025 7:48 AM EDT) Hemoglobin A1C 6.0 <6.5 % LAB CHEMISTRY METHOD 05/27/2025 11:31 AM EDT [facility] Mean Bld Glu Estim. 126 mg/dL LAB CHEMISTRY METHOD 05/27/2025 11:31 AM EDT [facility] Blood Venous blood specimen / Unknown Venipuncture / Unknown 05/27/2025 7:48 AM EDT 05/27/2025 7:48 AM EDT us Lay BEARD LAB BLOOD ORDERABLES Fin al Result [facility] [address] [place] [address], * (ABNORMAL) Comprehensive metabolic panel (05/27/2025 7:48 AM EDT) Sodium 137 133 - 145 mmol/L LAB CHEMISTRY METHOD 05/27/2025 11:30 AM [facility] Potassium 4.2 3.5 - 5.5 mmol/L LAB CHEMISTRY METHOD 05/27/2025 11:30 AM [facility] Chloride 103 96 - 110 mmol/L LAB CHEMISTRY METHOD 05/27/2025 11:30 AM [facility] CO2 26 21 - 32 mmol/L LAB CHEMISTRY METHOD 05/27/2025 11:30 AM [facility] Anion Gap 8 3 - 11 LAB CHEMISTRY METHOD 05/27/2025 11:30 AM [facility] Glucose 111(H) 70 - 100 mg/dL LAB CHEMISTRY METHOD 05/27/2025 11:30 AM [facility] BUN 12 5 - 25 mg/dL LAB CHEMISTRY METHOD 05/27/2025 11:30 AM [facility] Creatinine 1.06 0.70 - 1.30 mg/dL LAB CHEMISTRY METHOD 05/27/2025 11:30 AM [facility] eGFR 75 >=60 mL/min/1. 73m2 LAB CHEMISTRY METHOD 05/27/2025 11:30 AM [facility] Comment:Calculation based on the Chronic Kidney Disease Epidemiology Collaboration (CKD-EPI) equation refit without adjustment for race. BUN/Creatinine Ratio 11.3 LAB CHEMISTRY METHOD 05/27/2025 11:30 AM [facility] Calcium 9.8 8.5 - 10.5 mg/dL LAB CHEMISTRY METHOD 05/27/2025 11:30 AM EDT [facility] AST (SGOT) 21 10 - 42 unit/L LAB CHEMISTRY METHOD 05/27/2025 11:30 AM T [facility] ALT (SGPT) 29 10 - 60 unit/L LAB CHEMISTRY METHOD [facility] Alkaline Phosphatase 79 42 - 121 unit/L LAB CHEMISTRY METHOD 05/27/2025 11:30 AM EDT [facility] Total Protein 7.0 6.0 - 8.0 g/dL LAB CHEMISTRY METHOD 05/27/2025 11:30 AM [facility] Albumin 4.2 3.2 - 5.0 g/dL LAB CHEMISTRY METHOD 05/27/2025 11:30 AM [facility] Total Bilirubin 0.7 0.0 - 1.4 mg/dL LAB CHEMISTRY METHOD 05/27/2025 11:30 AM EDT [facility] Blood Venous blood specimen / Unknown Venipuncture / Unknown 05/27/2025 7:48 AM EDT 05/27/2025 7:48 AM EDT Lay BEARD LAB BLOOD ORDERABLES Fin al Result [facility] [address] [place] [address], * Falls Risk Assessment (11/10/2023) Falls Risk Assessment Abstracted Historical Provider HEALTH MAINTENANCE Final Result * Depression Screening (11/10/2023) Depression Screening Abstracted Historical Provider HEALTH MAINTENANCE Final Result * Colonoscopy (02/11/2023) Colonoscopy Abstracted, No interpretation Anatomical Region Laterality Modality Other us Historical Provider HEALTH MAINTENANCE Final Result * Hepatitis C Screening (01/08/2022) Hepatitis C Screening Abstracted Historical Provider HEALTH MAINTENANCE Final Result from Last 3 Months or Most Recently Relevant to Health Maintenance Insurance MEDICARE [facility] Care Teams Owner/Operator Relationship Specialty Start Date End Date Jeff White MD [address] [place] [address] PCP - General Internal Medicine 04/18/22
[2025-08-03 12:15] LABS: PSA,Total (Free>4and<10) 2.57 ng/mL (0.00-4.00)
== END 2025-08-03 07:34 | disposition home or self-care (01) ==
LOC: HO.10HDL 07:33
PROVIDERS: Visit Provider Urology
DX: Z12.5 Encounter for screening for malignant neoplasm of prostate (principal); N40.1 Benign prostatic hyperplasia with lower urinary tract symptoms
CPT/HCPCS: 36415; 84153